=== PATIENT | female | born 1955 | race Hispanic/Latino ===

== ENCOUNTER 2018-01-20 08:15 | Outpatient (CLI) | payer OTHER, BC | END 2018-01-20 08:16 | disposition home or self-care (01) | LOC: BICMAMMO 08:15 | PROVIDERS: ATTEND Orthopaedic Surgery | DX: Z12.31 Encounter for screening mammogram for malignant neoplasm of breast (principal); Z80.3 Family history of malignant neoplasm of breast | CPT/HCPCS: 77063; 77067 ==

== ENCOUNTER 2018-10-22 15:56 | Inpatient (IN) | payer BC, OTHER ==
[2018-10-22 17:35] LABS: #Eosinphils 0.1 thou/uL (0.0-0.7); #Lymphocytes 1.9 thou/uL (1.20-3.40); #Neutrophils 9.4 thou/uL (1.40-6.50); %Basophils 0.2 % (0.0-1.0); %Eosinophils 0.7 % (0.0-10.0); %Lymphocytes 15.3 % (21.0-51.0); %Monocytes 7.7 % (0.0-10.0); %Neutrophils 76.1 % (42.0-75.0); Hemoglobin 13.9 g/dL (12.0-16.0); Mean Corpuscular HGB CONC 33.2 g/dL (32.0-36.0); Mean Corpuscular Hemoglobin 31.4 pg (27.0-31.0); Mean Corpuscular Volume 94.6 fL (78.0-98.0); Mean Platelet Volume 8.5 fL (7.4-10.4); Platelet Count 321 thou/uL (130-400); RBC Distribution Width 11.8 % (11.5-14.5); Red Blood Cell (RBC) Count 4.44 mill/uL (4.20-5.40); White Blood Cell (WBC) Count 12.3 thou/uL (4.8-10.8)
[2018-10-22 17:45] LABS: Anion Gap 24 mmol/L (10-20); BUN (Urea Nitrogen) 58 mg/dL (9.8-20.1); Calc. Creatinine Clearance 0 mL/min (70-130); Calcium 10.7 mg/dL (7.8-10.44); Carbon Dioxide 16 mmol/L (23-31); Chloride 99 mmol/L (98-107); Estimated GFR-MDRD 6; Glucose 107 mg/dL (80-115); Potassium 4.3 mmol/L (3.5-5.1); Sodium 135 mmol/L (136-145)
--- NOTE | 2018-10-22 19:34 | PDOC.FPRHP ---
- History of Present Illness Chief Complaint: nausea/vomiting History of Present Illness: 63yo F with pmh of HTN presents with 3 day hx of nausea/vomiting/diarrhea. Denies any upper or lower GIB, denies sick contacts, no changes in diet, denies fever/chills. Pt last urinated Thursday morning. Of note pt does report to see Dr. Corona for HTN though she denies hx of kidney disease. ED Course: 2L NS - History PMHx: HTN PSHx: cholecystectomy FHx: Son- DM, ESRD on dialysis Social: drinks EtOH socially, denies tobacco/drugs - Review of Systems General: denies: fever/chills, fatigue Eyes: denies: eye pain, vision changes ENT: denies: nasal congestion, rhinorrhea Respiratory: denies: congestion, shortness of breath Cardiovascular: denies: chest pain, palpitation Gastrointestinal: reports: nausea, vomiting, diarrhea, constipation. denies: GI bleeding Genitourinary: reports: other (no urination x2.5 days). denies: incontinence Skin: denies: rashes, lesions Musculoskeletal: denies: pain, tenderness Neurological: denies: syncope, seizure Psychological: denies: anxiety, depression - Vital signs BP: [108/72] HR: [83] RR: [18] Tmax: [98.4] Pox: [97]% on [ra] Wt: [81kg] - Physical Exam Constitutional: NAD, awake, alert and oriented HEENT: normocephalic and atraumatic, EOMI, grossly normal vision, grossly normal hearing, MMM Neck: supple, trachea midline Chest: no-tender to palpation Heart: RRR, normal S1/S2 Lungs: CTAB, no respiratory distress Abdomen: soft, non-tender Musculoskeletal: normal structure, normal tone Neurological: no focal deficit, normal sensation Skin: no rash/lesions, good turgor Heme/Lymphatic: no unusual bruising or bleeding, no purpura Psychiatric: normal mood and affect, good judgment and insight FMR H&P: Results - Labs Result Diagrams: 10/22/18 17:24 10/22/18 17:24 Lab results: WBC 12.3 thou/uL (4.8-10.8) H 10/22/18 17:24 Hgb 13.9 g/dL (12.0-16.0) 10/22/18 17:24 Hct 42.0 % (36.0-47.0) 10/22/18 17:24 MCV 94.6 fL (78.0-98.0) 10/22/18 17:24 Plt Count 321 thou/uL (130-400) 10/22/18 17:24 Neutrophils % 76.1 % (42.0-75.0) H 10/22/18 17:24 Sodium 135 mmol/L (136-145) L 10/22/18 17:24 Potassium 4.3 mmol/L (3.5-5.1) 10/22/18 17:24 Chloride 99 mmol/L (98-107) 10/22/18 17:24 Carbon Dioxide 16 mmol/L (23-31) L 10/22/18 17:24 BUN 58 mg/dL (9.8-20.1) H 10/22/18 17:24 Creatinine 6.84 mg/dL (0.6-1.1) H 10/22/18 17:24 Glucose 107 mg/dL (80-115) 10/22/18 17:24 Calcium 10.7 mg/dL (7.8-10.44) H 10/22/18 17:24 FMR H&P: A/P - Problem List (1) Acute renal failure Current Visit: Yes Status: Acute (2) HTN (hypertension) Current Visit: Yes Status: Acute Code(s): I10 - ESSENTIAL (PRIMARY) HYPERTENSION (3) Nausea & vomiting Current Visit: Yes Status: Acute Code(s): R11.2 - NAUSEA WITH VOMITING, UNSPECIFIED (4) Diarrhea Current Visit: Yes Status: Acute Code(s): R19.7 - DIARRHEA, UNSPECIFIED - Plan Acute on chronic renal failure likely 2/2 hypovolemia A- Pt was volume down 2/2 N/V/Diarrhea for 3 days. BUN Cr 58 and 6.84, bicarb 16 , anion gap 20 at time of our evaluation. Dr. Corona was called and recommended 250ml bolus LR and continue LR at 125ml/hr. P- LR 250ml bolus, then 125/hr per nephro recs - Nephrology consulted, recommendations greatly appreciated - monitor BMP in AM - f/u nephro recs Diarrhea/nausea/vomiting A- pt likely has viral gastroenteritis, onset of symptoms is only a few days. P- fluid resuscitation as listed above - Zofran for nausea controll - will hold of diarrhea workup/stool studies for now UTI A- UA concerning for UTI P- UCx - start rocephin HTN A- BP relatively low though not hypotensive in ER. P- will hold home antihypertensives CODE: full dispo: inpt, tele FMR H&P: Upper Level - Pertinent history 63 yo WF PMH HTN. Presents with 3 day history of diarrhea, nausea, and vomiting. States she has not made urine since Thursday evening. Denies history of kidney disease. ER: Labs, IV NS 2L. 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 Pertinent changes/additions are listed here. 1. Acute renal failure present at admission: Likely pre-renal in etiology. Since patient already established with Dr. Ozzy Corona, consult was placed. He recommends IV LR bolus then rate of 125 mL/hr. Will monitor BMP. Electrolytes normal. Patient making urine in ER. 2. Diarrhea: check C-diff likely viral in etiology 3. UTI: rocephin 1g. culture pending. 4. Chronic conditions per Substation Operator Transforming note. 5. Diet: NPO at midnight in case needs HD access. If kidney function improving, will allow her to eat. 6. PPx: heparin SC 7. CODE: FULL Dispo: inpatient, tele, >[address] Cervantes.
[2018-10-22 21:47] LABS: Bilirubin Moderate (Negative); Blood, Urine Moderate (Negative); Clarity CLOUDY (Clear); Glucose, Urine (Dipstick) Negative (Negative); Leukocyte Moderate (Negative); Nitrite Negative (Negative); Protein, Urine (Dipstick) 300 mg/dL (Neg-Trace); Urobilinogen 0.2 mg/dL (0.2-1.0)
[2018-10-22 21:48] LABS: Pathc Cast-AUWi Flag 2.04 (0-2.49); Squamous Epithelial 0-3 HPF (0-3)
[2018-10-22 21:49] LABS: Yeast-AUWi Flag 65.8 (0-25.0)
[2018-10-22 21:57] LABS: Bacteria/HPF 3+ HPF (None Seen)
[2018-10-22 21:58] LABS: ALT (SGPT) 84 U/L (8-55); AST (SGOT) 97 U/L (5-34); Albumin 3.7 g/dL (3.4-4.8); Alkaline Phosphatase 58 U/L (40-150); Bilirubin, Direct 0.2 mg/dL (0.1-0.3); Bilirubin, Total 0.5 mg/dL (0.2-1.2); Protein, Total 7.4 g/dL (6.0-8.3)
[2018-10-22 21:59] LABS: Yeast-All Forms Rare HPF (None Seen)
[2018-10-22 23:51] VITALS: BMI 32.1
[2018-10-23] MEDS ORDERED: Lactated Ringer's 250 ML IV SCH (00:18)
[2018-10-23] MEDS ORDERED: Ondansetron PF 4 MG/2 ML Vial IVP PRN (00:18)
[2018-10-23] MEDS ORDERED: Ondansetron ODT 4 MG TAB PO PRN (00:18)
[2018-10-23] MEDS ORDERED: Acetaminophen 325 MG TAB PO PRN (00:18)
[2018-10-23] MEDS: cefTRIAXone\\ROCEPHIN 1 GM in Sodium Chloride 0.9% 100 ML IVPB SCH (00:40)
[2018-10-23] MEDS: Lactated Ringer's 1,000 ML IV SCH ×3 (00:40→19:50)
[2018-10-23 08:50] LABS: #Eosinphils 0.1 thou/uL (0.0-0.7); #Lymphocytes 1.6 thou/uL (1.20-3.40); #Monocytes 0.9 thou/uL (0.11-0.59); #Neutrophils 7.8 thou/uL (1.40-6.50); %Eosinophils 1.3 % (0.0-10.0); %Lymphocytes 15.2 % (21.0-51.0); %Neutrophils 74.5 % (42.0-75.0); Hemoglobin 11.4 g/dL (12.0-16.0); Mean Corpuscular HGB CONC 33.7 g/dL (32.0-36.0); Mean Corpuscular Hemoglobin 31.3 pg (27.0-31.0); Mean Corpuscular Volume 92.9 fL (78.0-98.0); Mean Platelet Volume 8.8 fL (7.4-10.4); Platelet Count 236 thou/uL (130-400); RBC Distribution Width 11.8 % (11.5-14.5); Red Blood Cell (RBC) Count 3.64 mill/uL (4.20-5.40); White Blood Cell (WBC) Count 10.5 thou/uL (4.8-10.8)
[2018-10-23] MEDS ORDERED: Prevnar 13-Val Conj/PF 0.5 ML SYRINGE IM ONE (09:00)
[2018-10-23 09:17] LABS: Anion Gap 17 mmol/L (10-20); BUN (Urea Nitrogen) 58 mg/dL (9.8-20.1); Calc. Creatinine Clearance 13 mL/min (70-130); Carbon Dioxide 15 mmol/L (23-31); Chloride 106 mmol/L (98-107); Estimated GFR-MDRD 7; Glucose 84 mg/dL (80-115); Potassium 3.9 mmol/L (3.5-5.1); Sodium 134 mmol/L (136-145)
[2018-10-23] MEDS: Heparin 5,000 UNITS/ML VIAL SC SCH ×3 (09:24→21:17)
--- NOTE | 2018-10-23 11:02 | PDOC.FM ---
- Subjective Subjective: No overnight events. Continues to have diarrhea but nausea has resolved. She feels better than yesterday, reports less weakness. Good appetite. - Objective MAR Reviewed: Yes Vital Signs & Weight: Vital Signs (12 hours) Temp Pulse Resp BP Pulse Ox 10/23/18 08:00 96.4 F L 72 16 116/68 97 10/23/18 03:19 98.3 F 81 16 103/52 L 92 L 10/22/18 23:33 99 F 94 16 110/59 L 95 Weight Weight 82.327 kg Result Diagrams: 10/23/18 07:46 10/23/18 07:46 Phys Exam - Physical Examination Constitutional: NAD HEENT: moist MMs Neck: supple Respiratory: no wheezing, clear to auscultation bilateral Cardiovascular: RRR, no significant murmur Gastrointestinal: soft, non-tender, positive bowel sounds Musculoskeletal: no edema, pulses present Neurological: moves all 4 limbs Psychiatric: normal affect, A&O x 3 Skin: cap refill <2 seconds Dx/Plan (1) Acute renal failure Status: Acute (2) Dehydration Code(s): E86.0 - DEHYDRATION Status: Acute (3) Diarrhea Code(s): R19.7 - DIARRHEA, UNSPECIFIED Status: Acute (4) HTN (hypertension) Code(s): I10 - ESSENTIAL (PRIMARY) HYPERTENSION Status: Acute (5) Nausea & vomiting Code(s): R11.2 - NAUSEA WITH VOMITING, UNSPECIFIED Status: Acute (6) CKD (chronic kidney disease) Code(s): N18.9 - CHRONIC KIDNEY DISEASE, UNSPECIFIED Status: Chronic - Plan Plan: Acute on chronic renal failure likely 2/2 hypovolemia - Unknown baseline - N/v/diarrhea x3 days. - BUN/Cr 58/6.84 - Nephrology consulted, Dr. Corona. Apprec recs - Continue LR @125ml/hr. - Continue to monitor with daily BMPs Diarrhea - C diff negative - likely viral gastroenteritis - Zofran for nausea UTI - UA with evidence of infection - Urine Cx pending - Continue rocephin HTN - Holding home meds due to low BP Nausea/vomiting, resolved - Likely 2/2 viral infection Transaminitis - Continue to monitor Code Status: FULL DVT ppx: Heparin PCP: Evgeny
--- NOTE | 2018-10-23 11:07 | CON ---
DATE OF CONSULTATION: SERVICE: Renal Medicine. HISTORY OF PRESENT ILLNESS: Ms. Patterson is a 63-year-old female with known history of longstanding hypertension, chronic renal failure from a presumed hypertensive nephropathy and admitted for volume depletion. She was found it to be an acute kidney injury that was most likely hemodynamically-mediated renal dysfunction. Of interest, this patient has also been taking an MARIA GUADALUPE inhibitor. She has been having nausea and vomiting as well as diarrhea. We are consulted for acute kidney injury on top of her chronic renal failure. Her initial creatinine was noted to be more than 6 mg%. Empiric volume repletion has been started with this patient. REVIEW OF SYSTEMS: Positive for nausea and vomiting. Positive for diarrhea. No chest pain. No shortness of breath. No headache. No diplopia. No syncopal episode. No productive cough. No fever or chills. No gross hematuria. No dysuria. No urinary frequency. No abdominal pain. Decreased appetite. Decreased energy level. No diplopia. No headache. No sore throat. No fever or chills. MEDICATIONS: Home medications included the following; 1. Metoprolol succinate 50 mg daily. 2. Fosinopril 20 mg daily. 3. Aspirin 81 mg daily. 4. Amlodipine 10 mg tablet once a day. Current medications: 1. Ceftriaxone 1 g IV daily. 2. Heparin 5000 units subcu t.i.d. 3. D5 lactated Ringer's 125 mL. 4. P.r.n. Zofran. PAST MEDICAL HISTORY: Chronic renal failure from hypertensive nephropathy, longstanding hypertension. PAST SURGICAL HISTORY: 1. Status post colonoscopy? 2. Status post breast biopsy - benign findings. 3. History of status post cholecystectomy. SOCIAL HISTORY: The patient is , 2 children. 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 Education, high school. No smoking. Alcohol is occasional. Denies any IV drug abuse. Denies any blood transfusion. Active lifestyle. ALLERGIES: NONE. TRAUMA: None. IMMUNIZATIONS: Up-to-date. HOSPITALIZATIONS: Please see past medical history. FAMILY HISTORY: Positive family history of ESRD - one son to start dialysis. PHYSICAL EXAMINATION: VITAL SIGNS: Blood pressure 116/68, heart rate 72, respiratory rate 16, temperature 96.4, and pulse ox 97%. GENERAL: Awake, alert, supine, comfortable, not in distress. SKIN: Adequate turgor. HEENT: Pinkish conjunctivae. Anicteric sclerae. NECK: No neck mass. No carotid bruits. No JVD. CHEST: No deformities. LUNGS: Clear breath sounds. HEART: Normal sinus rhythm. No murmur. No gallops. No rubs. ABDOMEN: Globular, soft, and nontender. No masses. EXTREMITIES: No edema. No deformities. NEUROLOGICAL: No tremors. No asterixis. Oriented to 3 spheres. Moving all extremities. LABORATORY DATA: Laboratories of October 22, 2018; sodium 135, potassium 4.3, chloride 99, carbon dioxide 16, BUN 58, creatinine 6.84, calcium 10.7, AST 97, ALT 84. TSH 2.04. Troponin I 0.015. On October 23, 2018; sodium 134, potassium 3.9, chloride 106, carbon dioxide 15, BUN 58, creatinine 5.68, glucose 84, and calcium 9. White count 10.5, hemoglobin 11.4. Urinalysis, specific gravity is 20. There is a protein of 300, rbc's 7 to 10, wbc's greater than 50. No pigmented granular casts. ASSESSMENT AND PLAN: 1. Acute kidney injury - with a history of nausea, vomiting, decreased p.o. intake and ?diarrhea. She most likely has a hemodynamically-mediated renal dysfunction. At the same time, the intake of the fosinopril probably aggravated the renal dysfunction. Agree with current management. Continue empiric volume repletion. Continue to hold off fosinopril. 2. No indication for any dialytic intervention. With no significant improvement in the renal function in the next 24 to 48 hours, we will do a renal ultrasound. Overall agree with current management. Recheck basic metabolic and CBC in a.m. Job ID: [id number]
[2018-10-24] MEDS: cefTRIAXone\\ROCEPHIN 1 GM in Sodium Chloride 0.9% 100 ML IVPB SCH (00:28)
[2018-10-24] MEDS: Lactated Ringer's 1,000 ML IV SCH ×2 (00:29→10:43)
--- NOTE | 2018-10-24 05:47 | PDOC.FM ---
- Subjective Subjective: Feeling good this morning. No overnight events. Nausea, diarrhea, and vomiting have resolved. She would like to try a regular diet today as she was able to tolerate soup and jello yesterday. - Objective MAR Reviewed: Yes Vital Signs & Weight: Vital Signs (12 hours) Temp Pulse Resp BP Pulse Ox 10/24/18 03:10 97.7 F 73 14 135/73 97 10/23/18 18:45 98.1 F 80 16 171/85 H 97 Weight Weight 82.327 kg I&O: 10/22/18 10/23/18 10/24/18 06:59 06:59 07:59 Intake Total 2401 Output Total 1800 Balance 601 Result Diagrams: 10/24/18 06:38 10/24/18 06:38 Phys Exam - Physical Examination Constitutional: NAD HEENT: moist MMs Neck: supple Respiratory: no wheezing, clear to auscultation bilateral Cardiovascular: RRR, no significant murmur Gastrointestinal: soft, non-tender, positive bowel sounds Musculoskeletal: no edema Neurological: moves all 4 limbs Psychiatric: normal affect, A&O x 3 Skin: cap refill <2 seconds Dx/Plan (1) Acute renal failure Status: Acute (2) Dehydration Code(s): E86.0 - DEHYDRATION Status: Acute (3) Diarrhea Code(s): R19.7 - DIARRHEA, UNSPECIFIED Status: Acute (4) HTN (hypertension) Code(s): I10 - ESSENTIAL (PRIMARY) HYPERTENSION Status: Acute (5) Nausea & vomiting Code(s): R11.2 - NAUSEA WITH VOMITING, UNSPECIFIED Status: Acute (6) CKD (chronic kidney disease) Code(s): N18.9 - CHRONIC KIDNEY DISEASE, UNSPECIFIED Status: Chronic - Plan Plan: Acute on chronic renal failure likely 2/2 hypovolemia - Likely component of fosinopril as well, will hold - N/v/diarrhea x3 days. - BUN Cr improving - Nephrology consulted, Dr. Corona. Apprec recs - D/c LR @125ml/hr. Diarrhea - C diff negative - likely viral gastroenteritis - Zofran for nausea UTI - UA with evidence of infection - Urine Cx pending - Continue rocephin HTN - Holding home meds due to low BP and fosinopril contributing to RICARDA Nausea/vomiting, resolved - Likely 2/2 viral infection Transaminitis - Continue to monitor Code Status: FULL DVT ppx: Heparin PCP: Evgeny Dispo: Discharge today with F/u [address] Corona
[2018-10-24 07:07] LABS: #Basophils 0.1 thou/uL (0.0-0.2); #Eosinphils 0.4 thou/uL (0.0-0.7); #Lymphocytes 2.2 thou/uL (1.20-3.40); #Monocytes 0.7 thou/uL (0.11-0.59); %Basophils 0.8 % (0.0-1.0); %Eosinophils 5.7 % (0.0-10.0); %Lymphocytes 34.7 % (21.0-51.0); %Monocytes 11.2 % (0.0-10.0); %Neutrophils 47.5 % (42.0-75.0); Hemoglobin 11.6 g/dL (12.0-16.0); Mean Corpuscular HGB CONC 32.7 g/dL (32.0-36.0); Mean Corpuscular Hemoglobin 30.9 pg (27.0-31.0); Mean Corpuscular Volume 94.3 fL (78.0-98.0); Mean Platelet Volume 8.4 fL (7.4-10.4); Platelet Count 235 thou/uL (130-400); RBC Distribution Width 11.6 % (11.5-14.5); Red Blood Cell (RBC) Count 3.77 mill/uL (4.20-5.40); White Blood Cell (WBC) Count 6.3 thou/uL (4.8-10.8)
[2018-10-24 07:32] LABS: ALT (SGPT) 84 U/L (8-55); AST (SGOT) 84 U/L (5-34); Albumin 3.2 g/dL (3.4-4.8); Alkaline Phosphatase 50 U/L (40-150); Anion Gap 15 mmol/L (10-20); BUN (Urea Nitrogen) 47 mg/dL (9.8-20.1); Bilirubin, Total 0.3 mg/dL (0.2-1.2); Calc. Creatinine Clearance 20 mL/min (70-130); Calcium 9.3 mg/dL (7.8-10.44); Carbon Dioxide 18 mmol/L (23-31); Chloride 109 mmol/L (98-107); Estimated GFR-MDRD 12; Globulin 3.4 g/dL (2.4-3.5); Glucose 76 mg/dL (80-115); Potassium 3.8 mmol/L (3.5-5.1); Protein, Total 6.6 g/dL (6.0-8.3); Sodium 138 mmol/L (136-145)
[2018-10-24] MEDS: Heparin 5,000 UNITS/ML VIAL SC SCH (09:12)
--- NOTE | 2018-10-24 10:50 | PRG ---
DATE OF SERVICE: 10/24/2018 SERVICE: Renal Medicine SUBJECTIVE: Ms. Patterson is a 63-year-old female, who was admitted for an acute kidney injury secondary to hemodynamically-mediated renal dysfunction. Empiric volume repletion is being given. She was also found to have a UTI and is on ceftriaxone. She is currently tolerating current IV fluids. No complaints of chest pain or shortness of breath. She is feeling much better. OBJECTIVE: VITAL SIGNS: Blood pressure 135/73, heart rate 73, respiratory rate 14, temperature 97.7, and pulse ox 97%. GENERAL: Awake, alert, comfortable, not in overt distress. SKIN: Adequate turgor. HEENT: Pinkish conjunctivae. Anicteric sclerae. NECK: No neck mass. No carotid bruits. No JVD. CHEST: No deformities. LUNGS: Clear breath sounds. No wheezing. No crackles. HEART: Normal sinus rhythm. No murmurs. No gallops. No rubs. ABDOMEN: Globular, soft, nontender. No masses. EXTREMITIES: No edema. No deformities. MEDICATIONS: Medications of October 24, 2018, reviewed. LABORATORY DATA: Laboratories of October 23, 2018; white count 6.3, hemoglobin 11.6, hematocrit 35.6. Sodium 138, potassium 3.8, chloride 109, carbon dioxide 18, BUN 47, creatinine 3.71, GFR 12 mL/minute, glucose 76, and calcium 9.3. AST 84, ALT 84. Albumin 3.2. ASSESSMENT AND PLAN: 1. Acute kidney injury - hemodynamically-mediated renal dysfunction. Continue current management. Continue IV fluid volume repletion. I will continue to hold off any MARIA GUADALUPE inhibitors or ARB for the moment with this patient. 2. Proteinuria. During a routine urinalysis, she was found to have protein of 300. The plan is simply to observe her. We may need to do further workup as an outpatient with this. 3. Hypertension, stable. If BP medicines are to be resumed, I would probably resume the amlodipine and/or the metoprolol. Continue to hold off the fosinopril. Overall, agree with current management. Job ID: [id number]
[2018-10-24 12:09] VITALS: BP 146/76; TEMP 98.6
--- NOTE | 2018-10-25 09:08 | HP ---
ADDENDUM: An addendum to the history and physical and also the progress note on Opal Patterson. Please see the history and physical done by Dr. Ng and the progress note done by Dr. Murphy, which I agree. The patient was seen, evaluated, and discussed with the residents by bedside. HISTORY OF PRESENT ILLNESS: A 63-year-old with history of hypertension, although does not sound like chronically elevated creatinine, who comes in with what sounds like 3 days of gastroenteritis with nausea, vomiting, and diarrhea, but then, anuric for almost 24 hours and creatinine was as high as 6.3, and so she is being admitted for acute renal failure. PAST MEDICAL HISTORY: Per resident's history and physical. PAST SURGICAL HISTORY: Per resident's history and physical. FAMILY HISTORY: Per resident's history and physical. SOCIAL HISTORY: Per resident's history and physical. REVIEW OF SYSTEMS: Per resident's history and physical. PHYSICAL EXAMINATION: VITAL SIGNS: Afebrile. Vital signs are stable. Currently not vomiting. No apparent distress. No respiratory distress. HEENT: Moist mucosa. Conjunctivae are not particularly pale. CHEST: Clear. HEART: Regular rate and rhythm. ABDOMEN: Positive bowel sounds. Soft, nontender, and nondistended. No hepatosplenomegaly. No masses, rebound, or guarding. LABORATORY DATA: Blood work significant for white count being a little bit high at 12.3. Liver function tests were a little bit elevated. AST of 97, ALT of 84, initial creatinine was 6.84 and overnight, did come down in the 5 range. Calcium initially was 10.7. ASSESSMENT AND PLAN: 1. Viral gastroenteritis. Plan is to IV fluids and Zofran. Clostridium difficile was negative. 2. Acute renal failure, possibly on top of chronic renal insufficiency. We will treat with obviously IV fluids and just watch there is Renal has involved coming alongside. Hopefully, her creatinine will come back down to normal and this will not be a long-term issue. Job ID: [id number]
--- NOTE | 2018-10-25 11:08 | DIS ---
DATE OF ADMISSION: 10/22/2018 DATE OF DISCHARGE: 10/24/2018 RESIDENT: Milady Murphy MD ADMITTING ATTENDING: Seng Cervantes MD DISCHARGE ATTENDING: Seng Cervantes MD CONSULT: Nephrology. PROCEDURES: None. PRIMARY DIAGNOSES: 1. Acute on chronic renal failure, likely secondary to hypovolemia. 2. Viral gastroenteritis. 3. Urinary tract infection. SECONDARY DIAGNOSES: 1. Hypertension. 2. Nausea and vomiting, resolved. 3. Transaminitis. DISCHARGE MEDICATIONS: 1. Amlodipine 10 mg daily. 2. Aspirin 81 mg daily. 3. Cefdinir 300 mg q.12 hours for x5 days (new). 4. Metoprolol succinate 50 mg daily. 5. Zofran 4 mg q.6 hours p.r.n. HISTORY OF PRESENT ILLNESS/HOSPITAL COURSE: Ms. Patterson is a 63-year-old female, who presented to the ED with 3-day history of nausea, vomiting, and diarrhea. She has a history of chronic kidney disease and she sees Dr. Corona for outpatient and the ED labs were notable for leukocytosis 12.3, creatinine 6.84, and GFR 6. UA concerning for infection. AST 97 and ALT 84. Urine culture positive for E. coli, pansensitive. C. diff negative. She received 2 L normal saline. Nephrology was consulted, who recommended further resuscitation and maintenance fluids until the patient able to tolerate a regular diet. The patient's kidney function showed it responds to fluid. Creatinine was 3.71 at discharge. The patient tolerating a regular diet and it was recommended, the patient have close followup with Dr. Corona as outpatient to monitor renal function, after the cause of her diarrhea, nausea, and vomiting is likely viral gastroenteritis. Zofran was given for nausea and C. diff was negative. Rocephin was started for her UTI and she was discharged on Cefdinir. In regard to her hypertension, her blood pressure was actually borderline low and blood pressure medications were held. Dr. Corona recommended holding off lisinopril because this could be contributing to her RICARDA, this can be followed up as outpatient and held until plan to restart. Unknown etiology for transaminitis. This was monitored and discharge labs showed AST/ALT 84/84. Follow up outpatient PCP. DISPOSITION: Stable. DISCHARGE INSTRUCTIONS: 1. Location. Home. 2. Activity. No restrictions. 3. Diet. Renal and low-protein. 4. Follow up with Dr. Vázquez within [address] Corona within 1 week. Job ID: [id number]
--- NOTE | 2018-10-25 11:21 | PRG ---
DATE OF SERVICE: ADDENDUM: Please see the note from Dr. Murphy, for which I agree. The patient was seen, evaluated, and discussed with the residents by bedside. Doing tremendously better. Her creatinine, which was elevated almost at 7, has come down to 3.7 with fluids. She has no more nausea, no more vomiting, and no more diarrhea. We are stopping her MARIA GUADALUPE inhibitor and likely can be discharged home, which is a close outpatient followup on creatinine. Job ID: [id number]
== END 2018-10-24 12:19 | disposition home or self-care (01) | DRG 683 ==
LOC: ERS 15:56 → 2NO 23:38
PROVIDERS: ADMIT Family Medicine; ATTEND Family Medicine
DX: N17.9 Acute kidney failure, unspecified (principal); N39.0 Urinary tract infection, site not specified; I12.9 Hypertensive chronic kidney disease with stage 1 through stage 4 chronic kidney disease, or unspecified chronic kidney disease; N18.9 Chronic kidney disease, unspecified; A08.4 Viral intestinal infection, unspecified; E86.0 Dehydration; R74.0 Nonspecific elevation of levels of transaminase and lactic acid dehydrogenase [LDH]; B96.20 Unspecified Escherichia coli [E. coli] as the cause of diseases classified elsewhere; Z90.49 Acquired absence of other specified parts of digestive tract
CPT/HCPCS: 36415; 80048; 80053; 80076; 81003; 81015; 83605; 83735; 84443; 84484; 85025; 87077; 87086; 87186; 87324; 87449; 90471; 90670; 93005; 96360; 96361; G0009; J0696; J1644; J7050

== ENCOUNTER 2019-10-18 07:42 | Outpatient (CLI) | payer MEDICARE, BC ==
--- NOTE | 2019-10-18 09:16 | ULT ---
BILATERAL RENAL ULTRASOUND: Date: 10/18/2019 INDICATION: History of chronic renal insufficiency. FINDINGS: There is a 2.0 cm cyst involving the superior pole of the left kidney. No additional focal renal lesi on or hydronephrosis is evident. The right kidney measures 9.2 x 5.7 x 5.3 cm. The left kidney measures 9.2 x 5.7 x 6.1 cm. Bladder volume is 56 mL. IMPRESSION: 1. No solid renal lesion or hydronephrosis. 2. Left renal cyst. POS: OFF
== END 2019-10-18 07:43 | disposition home or self-care (01) ==
LOC: BICULT 07:42
PROVIDERS: ATTEND Internal Medicine Nephrology
DX: N18.4 Chronic kidney disease, stage 4 (severe) (principal); N28.1 Cyst of kidney, acquired
CPT/HCPCS: 76770

== ENCOUNTER 2020-06-15 08:11 | Day surgery (SDC) | payer BC, MEDICARE ==
[2020-06-14 16:22] VITALS: BMI 30.9
[2020-06-15 08:36] LABS: PTT 32.3 sec (22.9-36.1); Prothrombin Time 13.5 sec (12.0-14.7)
[2020-06-15 10:30] VITALS: BP 179/87; TEMP 99
== END 2020-06-15 10:20 | disposition home or self-care (01) ==
LOC: CT 08:11
PROVIDERS: ATTEND Internal Medicine Nephrology
DX: I12.9 Hypertensive chronic kidney disease with stage 1 through stage 4 chronic kidney disease, or unspecified chronic kidney disease (principal); N18.4 Chronic kidney disease, stage 4 (severe); Z53.09 Procedure and treatment not carried out because of other contraindication; Z79.82 Long term (current) use of aspirin; Z79.899 Other long term (current) drug therapy
CPT/HCPCS: 36415; 85610; 85730

== ENCOUNTER 2021-02-19 09:11 | Inpatient (IN) | payer BC, MEDICARE ==
[2021-02-19 10:34] VITALS: BMI 34.7
[2021-02-19] MEDS ORDERED: Amlodipine 10 MG TAB PO SCH (11:30)
[2021-02-19] MEDS ORDERED: Calcitriol 0.25 MCG CAP PO SCH (11:30)
[2021-02-19] MEDS ORDERED: Aspirin 325 MG TAB PO SCH (11:30)
[2021-02-19] MEDS: Sodium Chloride 0.9% 1,000 ML IV SCH ×2 (11:55→20:48)
[2021-02-19 17:19] LABS: #Basophils 0.1 thou/uL (0.0-0.2); #Eosinphils 0.7 thou/uL (0.0-0.7); #Monocytes 0.8 thou/uL (0.11-0.59); #Neutrophils 7.2 thou/uL (1.40-6.50); %Basophils 0.6 % (0.0-1.0); %Eosinophils 6.3 % (0.0-10.0); %Lymphocytes 25.2 % (21.0-51.0); %Monocytes 7.1 % (0.0-10.0); %Neutrophils 60.8 % (42.0-75.0); Hemoglobin 9.9 g/dL (12.0-16.0); Mean Corpuscular HGB CONC 33.2 g/dL (32.0-36.0); Mean Corpuscular Hemoglobin 31.2 pg (27.0-31.0); Mean Corpuscular Volume 93.8 fL (78.0-98.0); Mean Platelet Volume 7.5 fL (7.4-10.4); Platelet Count 312 thou/uL (130-400); RBC Distribution Width 11.6 % (11.5-14.5); Red Blood Cell (RBC) Count 3.18 mill/uL (4.20-5.40); White Blood Cell (WBC) Count 11.9 thou/uL (4.8-10.8)
[2021-02-19 17:34] LABS: ALT (SGPT) 10 U/L (8-55); AST (SGOT) 16 U/L (5-34); Albumin 3.8 g/dL (3.4-4.8); Alkaline Phosphatase 48 U/L (40-110); Anion Gap 16 mmol/L (10-20); BUN (Urea Nitrogen) 56 mg/dL (9.8-20.1); Bilirubin, Total 0.4 mg/dL (0.2-1.2); Calc. Creatinine Clearance 17 mL/min (70-130); Calcium 9.3 mg/dL (7.8-10.44); Carbon Dioxide 19 mmol/L (23-31); Chloride 104 mmol/L (98-107); Globulin 3.7 g/dL (2.4-3.5); Glucose 86 mg/dL (80-115); Potassium 4.1 mmol/L (3.5-5.1); Protein, Total 7.5 g/dL (5.8-8.1); Sodium 135 mmol/L (136-145)
[2021-02-20 05:04] LABS: #Basophils 0.1 thou/uL (0.0-0.2); #Eosinphils 0.9 thou/uL (0.0-0.7); #Lymphocytes 3.2 thou/uL (1.20-3.40); #Monocytes 0.7 thou/uL (0.11-0.59); #Neutrophils 7.1 thou/uL (1.40-6.50); %Basophils 0.7 % (0.0-1.0); %Eosinophils 7.4 % (0.0-10.0); %Lymphocytes 26.6 % (21.0-51.0); %Neutrophils 59.3 % (42.0-75.0); Mean Corpuscular HGB CONC 34.9 g/dL (32.0-36.0); Mean Corpuscular Volume 91.8 fL (78.0-98.0); Mean Platelet Volume 7.6 fL (7.4-10.4); Platelet Count 290 thou/uL (130-400); RBC Distribution Width 11.6 % (11.5-14.5); Red Blood Cell (RBC) Count 3.11 mill/uL (4.20-5.40)
[2021-02-20] MEDS ORDERED: Calcitriol 0.25 MCG CAP PO SCH (06:00)
[2021-02-20] MEDS ORDERED: Amlodipine 10 MG TAB PO SCH (06:00)
[2021-02-20] MEDS ORDERED: Aspirin 325 MG TAB PO SCH (06:00)
[2021-02-20] MEDS ORDERED: Heparin 10,000 UNITS/ 10 ML VIAL ONE (06:39)
[2021-02-20] MEDS ORDERED: Lidocaine 1% (PF) 30 ML VIAL ONE (06:39)
[2021-02-20 07:03] LABS: Anion Gap 15 mmol/L (10-20); BUN (Urea Nitrogen) 59 mg/dL (9.8-20.1); Calc. Creatinine Clearance 20 mL/min (70-130); Calcium 8.7 mg/dL (7.8-10.44); Carbon Dioxide 16 mmol/L (23-31); Chloride 110 mmol/L (98-107); Glucose 99 mg/dL (80-115); Potassium 4.3 mmol/L (3.5-5.1); Sodium 137 mmol/L (136-145)
[2021-02-20] MEDS ORDERED: Fentanyl 100 MCG/2 ML VIAL ONE (07:13)
[2021-02-20] MEDS ORDERED: Midazolam HCl 2 mg/2 ml Vial ONE (07:13)
[2021-02-20] MEDS ORDERED: Protamine Sulfate 50 MG/5 ML VIAL ONE (07:42)
[2021-02-20] MEDS ORDERED: Nitroglycerin 0.4 MG TAB (25 Tab Bottle) SL PRN ×2 (07:54→08:08)
[2021-02-20] MEDS ORDERED: Acetaminophen/Codeine 30-300mg Tablet PO PRN ×2 (08:08)
[2021-02-20] MEDS ORDERED: Sodium Chloride 0.9% 200 ML IV PRN (08:08)
[2021-02-20] MEDS ORDERED: Sodium Chloride 0.9% 1,000 ML IV SCH (08:15)
[2021-02-20] MEDS: Amlodipine 10 MG TAB PO SCH (09:00)
[2021-02-20] MEDS: Calcitriol 0.25 MCG CAP PO SCH (09:01)
[2021-02-20] MEDS: Aspirin 325 mg Enteric Coated Tablet PO SCH (09:01)
[2021-02-20] MEDS: Sodium Chloride 0.9% 1,000 ML IV SCH ×2 (09:02→15:30)
[2021-02-20] MEDS ORDERED: Iopamidol 370 76% 100 ML VIAL ONE (09:16)
[2021-02-20] MEDS: Nitroglycerin 2% Ointment 1 INCH/1 GM Packet TOP SCH ×2 (09:18→20:39)
[2021-02-20] MEDS ORDERED: Atorvastatin Calcium 40 MG TAB PO SCH (21:00)
[2021-02-21] MEDS: Sodium Chloride 0.9% 1,000 ML IV SCH ×2 (01:22→11:18)
[2021-02-21 05:44] LABS: #Eosinphils 1.1 thou/uL (0.0-0.7); #Lymphocytes 2.1 thou/uL (1.20-3.40); #Monocytes 0.6 thou/uL (0.11-0.59); #Neutrophils 8.1 thou/uL (1.40-6.50); %Basophils 0.4 % (0.0-1.0); %Eosinophils 9.5 % (0.0-10.0); %Lymphocytes 17.1 % (21.0-51.0); %Monocytes 5.3 % (0.0-10.0); %Neutrophils 67.9 % (42.0-75.0); Hemoglobin 9.1 g/dL (12.0-16.0); Mean Corpuscular HGB CONC 34.2 g/dL (32.0-36.0); Mean Corpuscular Volume 93.7 fL (78.0-98.0); Mean Platelet Volume 8.6 fL (7.4-10.4); Platelet Count 259 thou/uL (130-400); RBC Distribution Width 11.7 % (11.5-14.5); Red Blood Cell (RBC) Count 2.85 mill/uL (4.20-5.40)
[2021-02-21 05:50] LABS: Anion Gap 17 mmol/L (10-20); BUN (Urea Nitrogen) 44 mg/dL (9.8-20.1); Calc. Creatinine Clearance 22 mL/min (70-130); Calcium 8.5 mg/dL (7.8-10.44); Carbon Dioxide 12 mmol/L (23-31); Chloride 111 mmol/L (98-107); Glucose 93 mg/dL (80-115); Potassium 4.7 mmol/L (3.5-5.1); Sodium 135 mmol/L (136-145)
[2021-02-21] MEDS: Calcitriol 0.25 MCG CAP PO SCH (08:52)
[2021-02-21] MEDS: Aspirin 325 mg Enteric Coated Tablet PO SCH (08:52)
[2021-02-21] MEDS: Nitroglycerin 2% Ointment 1 INCH/1 GM Packet TOP SCH (08:53)
[2021-02-21] MEDS: Amlodipine 10 MG TAB PO SCH (08:53)
[2021-02-21] MEDS ORDERED: EPOETIN ALFA-EPBX (ESRD) 4,000 UNIT/ML VIAL SC SCH (09:45)
[2021-02-21] MEDS ORDERED: Sodium Bicarbonate Tab 325 MG TAB PO SCH (15:00)
[2021-02-21 15:11] VITALS: BP 138/65; TEMP 98
[2021-02-21] MEDS ORDERED: Ferrous Sulfate 325 MG TAB PO SCH (17:00)
== END 2021-02-21 18:11 | disposition home or self-care (01) | DRG 287 ==
LOC: 2SE 09:11
PROVIDERS: ADMIT Internal Medicine Cardiovascular Disease; ATTEND Internal Medicine Cardiovascular Disease
PROC: 4A023N7 Measurement of Cardiac Sampling and Pressure, Left Heart, Percutaneous Approach (ICD-10-PCS; principal; 2021-02-20)
PROC: B2111ZZ Fluoroscopy of Multiple Coronary Arteries using Low Osmolar Contrast (ICD-10-PCS; 2021-02-20)
PROC: B2151ZZ Fluoroscopy of Left Heart using Low Osmolar Contrast (ICD-10-PCS; 2021-02-20)
DX: I25.10 Atherosclerotic heart disease of native coronary artery without angina pectoris (principal); I12.0 Hypertensive chronic kidney disease with stage 5 chronic kidney disease or end stage renal disease; N18.5 Chronic kidney disease, stage 5; Z51.5 Encounter for palliative care; E87.2 Acidosis; E78.00 Pure hypercholesterolemia, unspecified; I25.5 Ischemic cardiomyopathy; E83.52 Hypercalcemia; D63.1 Anemia in chronic kidney disease; Z79.82 Long term (current) use of aspirin; Z79.899 Other long term (current) drug therapy; Z82.49 Family history of ischemic heart disease and other diseases of the circulatory system
CPT/HCPCS: 36415; 36416; 71045; 80048; 80053; 85025; 85347; 93005; 93010; 93458; 99152; 99153; J1644; J2001; J2250; J2720; J3010; Q5105; Q9967

== ENCOUNTER 2021-06-11 08:29 | Inpatient (IN) | payer BC, MEDICARE ==
[2021-06-11 09:12] LABS: Actual Bicarbonate (HCO3v) 20 mEq/L (22-28); Analyzer IN Cardio ER; Base Excess -3.5 mEq/L (-2.0 to +3.0); Calcium, Ionized (venous) 1.06 mmol/L (1.16-1.32); Chloride (VBG) 101 mmol/L (98-106); Hemoglobin (Hb) 8.7 g/dL (11.7-16.1); Potassium (VBG) 4.16 mmol/L (3.70-5.30); Sodium 136.8 mmol/L (133-146); pH (venous) 7.43 (7.32-7.43)
[2021-06-11] MEDS ORDERED: Furosemide 40 MG/4 ML VIAL ONE (09:25)
[2021-06-11 09:32] LABS: #Basophils 0.1 thou/uL (0.0-0.2); #Eosinphils 0.3 thou/uL (0.0-0.7); #Lymphocytes 1.5 thou/uL (1.20-3.40); #Monocytes 0.8 thou/uL (0.11-0.59); #Neutrophils 7.4 thou/uL (1.40-6.50); %Basophils 0.8 % (0.0-1.0); %Eosinophils 2.7 % (0.0-10.0); %Lymphocytes 14.8 % (21.0-51.0); %Monocytes 7.8 % (0.0-10.0); %Neutrophils 73.9 % (42.0-75.0); Hemoglobin 8.1 g/dL (12.0-16.0); Mean Corpuscular HGB CONC 32.1 g/dL (32.0-36.0); Mean Corpuscular Hemoglobin 31.4 pg (27.0-31.0); Mean Corpuscular Volume 97.9 fL (78.0-98.0); Mean Platelet Volume 7.3 fL (7.4-10.4); Platelet Count 523 thou/uL (130-400); RBC Distribution Width 13.8 % (11.5-14.5); Red Blood Cell (RBC) Count 2.58 mill/uL (4.20-5.40)
[2021-06-11 10:01] LABS: ALT (SGPT) 37 U/L (8-55); AST (SGOT) 30 U/L (5-34); Albumin 3.4 g/dL (3.4-4.8); Alkaline Phosphatase 60 U/L (40-110); Anion Gap 20 mmol/L (10-20); BUN (Urea Nitrogen) 76 mg/dL (9.8-20.1); Bilirubin, Total 0.7 mg/dL (0.2-1.2); Calc. Creatinine Clearance 0 mL/min (70-130); Calcium 9.5 mg/dL (7.8-10.44); Carbon Dioxide 21 mmol/L (23-31); Chloride 101 mmol/L (98-107); Globulin 3.4 g/dL (2.4-3.5); Glucose 105 mg/dL (80-115); Potassium 4.4 mmol/L (3.5-5.1); Protein, Total 6.8 g/dL (5.8-8.1); Sodium 138 mmol/L (136-145)
[2021-06-11 10:28] LABS: CKMB 1.9 ng/mL (0-6.6)
[2021-06-11] MEDS ORDERED: Enoxaparin Sodium 30 MG/0.3 ML SYRINGE ONE (10:30)
[2021-06-11] MEDS ORDERED: Aspirin Chewable 81 MG TAB ONE (10:30)
[2021-06-11] MEDS ORDERED: Enoxaparin Sodium 40 MG/0.4 ML SYRINGE ONE (10:30)
[2021-06-11] MEDS ORDERED: Nitroglycerin 2% Ointment 1 INCH/1 GM Packet ONE (10:38)
[2021-06-11 11:28] LABS: SARS-CoV-2 NAA Rapid Test Not Detected (NotDetected)
[2021-06-11] MEDS ORDERED: Ondansetron ODT 4 MG TAB PO PRN (12:09)
[2021-06-11] MEDS ORDERED: Ondansetron PF 4 MG/2 ML Vial IVP PRN (12:09)
[2021-06-11] MEDS ORDERED: Acetaminophen 650 MG Suppository PR PRN (12:09)
[2021-06-11] MEDS ORDERED: Acetaminophen 325 MG TAB PO PRN (12:09)
[2021-06-11 13:50] LABS: CKMB 2.1 ng/mL (0-6.6)
[2021-06-11] MEDS ORDERED: Bupivacaine HCl 0.5%/Epinephrine 1:200,000/PF 30 ml Vial ONE (14:45)
[2021-06-11 16:46] LABS: CKMB 2.1 ng/mL (0-6.6)
[2021-06-11 16:55] VITALS: BMI 28.5
[2021-06-11] MEDS: Furosemide 40 MG/4 ML VIAL SLOW IVP SCH (17:01)
[2021-06-11] MEDS: Atorvastatin Calcium 40 MG TAB PO SCH (20:28)
[2021-06-11] MEDS ORDERED: Heparin 5,000 UNITS/ML VIAL SC SCH (21:00)
[2021-06-12 05:12] LABS: #Basophils 0.1 thou/uL (0.0-0.2); #Eosinphils 0.3 thou/uL (0.0-0.7); #Lymphocytes 1.4 thou/uL (1.20-3.40); #Monocytes 0.8 thou/uL (0.11-0.59); #Neutrophils 8.6 thou/uL (1.40-6.50); %Basophils 0.6 % (0.0-1.0); %Eosinophils 2.6 % (0.0-10.0); %Lymphocytes 12.5 % (21.0-51.0); %Neutrophils 77.3 % (42.0-75.0); Hemoglobin 8.2 g/dL (12.0-16.0); Mean Corpuscular Hemoglobin 31.7 pg (27.0-31.0); Mean Corpuscular Volume 98.9 fL (78.0-98.0); Mean Platelet Volume 7.3 fL (7.4-10.4); Platelet Count 511 thou/uL (130-400); RBC Distribution Width 14.5 % (11.5-14.5); Red Blood Cell (RBC) Count 2.59 mill/uL (4.20-5.40); White Blood Cell (WBC) Count 11.2 thou/uL (4.8-10.8)
[2021-06-12 05:27] LABS: Anion Gap 18 mmol/L (10-20); BUN (Urea Nitrogen) 79 mg/dL (9.8-20.1); Calc. Creatinine Clearance 9 mL/min (70-130); Calcium 8.9 mg/dL (7.8-10.44); Carbon Dioxide 22 mmol/L (23-31); Chloride 100 mmol/L (98-107); Glucose 116 mg/dL (80-115); Potassium 4.7 mmol/L (3.5-5.1); Sodium 135 mmol/L (136-145)
[2021-06-12] MEDS: Furosemide 40 MG/4 ML VIAL SLOW IVP SCH ×2 (06:16→18:15)
[2021-06-12] MEDS ORDERED: Epoetin (ESRD) 20,000 UNITS/ML SC SCH (07:45)
[2021-06-12] MEDS ORDERED: Tuberculin PPD 0.1 ML VIAL I-DERMAL SCH (07:45)
[2021-06-12] MEDS ORDERED: CEFAZOLIN 2 GM in Premix Bag 1 BAG IVPB SCH (07:45)
[2021-06-12] MEDS ORDERED: ceFAZolin Sodium/D5W 2 GM in Premix Bag 1 BAG IVPB SCH ×2 (08:00→18:45)
[2021-06-12] MEDS: Aspirin 325 MG TAB PO SCH (08:50)
[2021-06-12] MEDS: Ferrous Sulfate 325 MG TAB PO SCH ×2 (08:51→18:16)
[2021-06-12] MEDS ORDERED: Aspirin Chewable 81 MG TAB PO SCH (09:00)
[2021-06-12] MEDS ORDERED: FLU VACC QS2021-22(65YR UP)/PF 240 MCG/0.7 ML SYRINGE IM ONE (09:00)
[2021-06-12] MEDS ORDERED: Heparin 10,000 UNITS/ 10 ML VIAL ONE ×2 (09:31→16:14)
[2021-06-12 10:22] LABS: HBSAB Concentration Less than 8.00 mIU/mL; HBSAg Index 0.21 S/CO (0-0.99); Hep B Core Total Ab Non-Reactive (NonReactive); Hep B Surf AB Non-Reactive (NonReactive); Hep B Surf Ag Non-Reactive S/CO (NonReactive); Hep C IgG Ab Non-Reactive (NonReactive); Hep C Index 0.08 S/CO (0-0.79)
[2021-06-12] MEDS ORDERED: ceFAZolin 2 GM/DEX 5% 100 ML BAG ONE (12:42)
[2021-06-12] MEDS ORDERED: Protamine Sulfate 50 MG/5 ML VIAL ONE (16:14)
[2021-06-12] MEDS ORDERED: Bupivacaine PF 0.5% 30 ML VIAL ONE (16:14)
[2021-06-12] MEDS ORDERED: Lidocaine 1% w/Epinephrine 1:100K 20 ML VIAL ONE (16:14)
[2021-06-12] MEDS ORDERED: Heparin 5,000 UNITS/ML VIAL ONE (16:14)
[2021-06-12] MEDS ORDERED: Ioversol 68 % 50 ML VIAL ONE (16:15)
[2021-06-12] MEDS ORDERED: Iothalamate Meglumine 60% 50 ML VIAL FS ONE (16:15)
[2021-06-12] MEDS ORDERED: Sodium Chloride 0.9% 30 ML ONE (16:15)
[2021-06-12] MEDS ORDERED: Fentanyl 100 MCG/2 ML VIAL ONE (16:21)
[2021-06-12] MEDS ORDERED: Midazolam HCl 2 mg/2 ml Vial ONE (16:21)
[2021-06-12] MEDS ORDERED: Dexmedetomidine 200 MCG/2 ML VIAL ONE (16:54)
[2021-06-12] MEDS: EPOETIN ALFA-EPBX (ESRD) 4,000 UNIT/ML VIAL SC SCH (21:24)
[2021-06-12] MEDS: Atorvastatin Calcium 40 MG TAB PO SCH (21:24)
[2021-06-13 04:42] LABS: #Eosinphils 0.1 thou/uL (0.0-0.7); #Lymphocytes 1.5 thou/uL (1.20-3.40); #Monocytes 0.9 thou/uL (0.11-0.59); #Neutrophils 10.2 thou/uL (1.40-6.50); %Basophils 0.4 % (0.0-1.0); %Eosinophils 0.9 % (0.0-10.0); %Lymphocytes 11.5 % (21.0-51.0); %Neutrophils 80.3 % (42.0-75.0); Hemoglobin 8.2 g/dL (12.0-16.0); Mean Corpuscular HGB CONC 32.6 g/dL (32.0-36.0); Mean Corpuscular Hemoglobin 32.6 pg (27.0-31.0); Mean Corpuscular Volume 99.9 fL (78.0-98.0); Mean Platelet Volume 7.2 fL (7.4-10.4); Platelet Count 444 thou/uL (130-400); RBC Distribution Width 14.8 % (11.5-14.5); Red Blood Cell (RBC) Count 2.52 mill/uL (4.20-5.40); White Blood Cell (WBC) Count 12.7 thou/uL (4.8-10.8)
[2021-06-13 04:58] LABS: Anion Gap 21 mmol/L (10-20); BUN (Urea Nitrogen) 61 mg/dL (9.8-20.1); Calc. Creatinine Clearance 10 mL/min (70-130); Calcium 8.9 mg/dL (7.8-10.44); Carbon Dioxide 22 mmol/L (23-31); Chloride 101 mmol/L (98-107); Glucose 95 mg/dL (80-115); Potassium 4.6 mmol/L (3.5-5.1); Sodium 139 mmol/L (136-145)
[2021-06-13] MEDS: Furosemide 40 MG/4 ML VIAL SLOW IVP SCH (06:06)
[2021-06-13] MEDS ORDERED: Heparin 10,000 UNITS/ 10 ML VIAL ONE (09:47)
[2021-06-13] MEDS: Aspirin 325 MG TAB PO SCH (11:11)
[2021-06-13] MEDS: Ferrous Sulfate 325 MG TAB PO SCH ×2 (11:11→15:49)
[2021-06-13] MEDS: Sodium Bicarbonate Tab 325 MG TAB PO SCH ×2 (15:49→22:01)
[2021-06-13] MEDS ORDERED: ceFAZolin Sodium/D5W 2 GM in Premix Bag 1 BAG IVPB SCH (16:30)
[2021-06-13] MEDS: Atorvastatin Calcium 40 MG TAB PO SCH (22:00)
[2021-06-14] MEDS ORDERED: Heparin 10,000 UNITS/ 10 ML VIAL ONE (08:53)
[2021-06-14] MEDS: Ferrous Sulfate 325 MG TAB PO SCH ×2 (09:50→14:51)
[2021-06-14] MEDS: Calcitriol 0.25 MCG CAP PO SCH (09:50)
[2021-06-14] MEDS: Amlodipine 10 MG TAB PO SCH (09:50)
[2021-06-14] MEDS: Aspirin 325 MG TAB PO SCH (09:50)
[2021-06-14] MEDS: Sodium Bicarbonate Tab 325 MG TAB PO SCH ×3 (09:51→21:58)
[2021-06-14] MEDS ORDERED: Heparin 5,000 UNITS/ML VIAL ONE (10:06)
[2021-06-14] MEDS ORDERED: Protamine Sulfate 50 MG/5 ML VIAL ONE (10:06)
[2021-06-14] MEDS ORDERED: Fentanyl 100 MCG/2 ML VIAL ONE (10:07)
[2021-06-14] MEDS ORDERED: Lidocaine 1% w/Epinephrine 1:100K 20 ML VIAL ONE (10:08)
[2021-06-14] MEDS ORDERED: Bupivacaine PF 0.5% 30 ML VIAL ONE (10:08)
[2021-06-14] MEDS ORDERED: ceFAZolin 2 GM/DEX 5% 100 ML BAG ONE (10:21)
[2021-06-14] MEDS ORDERED: PHENYLEPHRINE-NS 100 MCG/ML 10 ML SYRINGE ONE (10:36)
[2021-06-14] MEDS ORDERED: Lidocaine 1% PF 5 ML VIAL ONE (10:36)
[2021-06-14] MEDS ORDERED: Ondansetron PF 4 MG/2 ML Vial ONE (10:36)
[2021-06-14] MEDS ORDERED: Dexamethasone 20 MG/5 ML VIAL ONE (10:36)
[2021-06-14] MEDS ORDERED: ePHEDrine 50 MG/ML VIAL ONE (10:36)
[2021-06-14] MEDS ORDERED: ePHEDrine Sulfate 50 MG/10 ML VIAL ONE (11:35)
[2021-06-14] MEDS ORDERED: Promethazine HCl 25 MG/ML VIAL IVPB PRN (12:03)
[2021-06-14] MEDS ORDERED: Promethazine HCl 25 MG/ML VIAL IM PRN (12:03)
[2021-06-14] MEDS ORDERED: Ondansetron HCl/PF 4 MG/2 ML Vial IVP PRN (12:03)
[2021-06-14 14:38] LABS: #Lymphocytes 0.6 thou/uL (1.20-3.40); #Monocytes 0.3 thou/uL (0.11-0.59); #Neutrophils 9.1 thou/uL (1.40-6.50); %Basophils 0.3 % (0.0-1.0); %Eosinophils 0.4 % (0.0-10.0); %Lymphocytes 5.5 % (21.0-51.0); %Monocytes 3.1 % (0.0-10.0); %Neutrophils 90.7 % (42.0-75.0); Hemoglobin 7.9 g/dL (12.0-16.0); Mean Corpuscular HGB CONC 32.3 g/dL (32.0-36.0); Mean Corpuscular Hemoglobin 32.9 pg (27.0-31.0); Mean Platelet Volume 7.3 fL (7.4-10.4); Platelet Count 386 thou/uL (130-400); RBC Distribution Width 15.3 % (11.5-14.5)
[2021-06-14 14:57] LABS: Anion Gap 17 mmol/L (10-20); BUN (Urea Nitrogen) 56 mg/dL (9.8-20.1); Calc. Creatinine Clearance 9 mL/min (70-130); Calcium 8.9 mg/dL (7.8-10.44); Carbon Dioxide 26 mmol/L (23-31); Cardiac Risk 4.2 (Less than 4.5); Chloride 100 mmol/L (98-107); Cholesterol 92 mg/dl (< 200 Desired); Glucose 115 mg/dL (80-115); HDL Cholesterol 22 mg/dL (>60 Neg Risk); LDL Cholesterol, Calculated 50 mg/dL; Phosphorus 5.4 mg/dL (2.3-4.7); Potassium 4.5 mmol/L (3.5-5.1); Sodium 138 mmol/L (136-145); Triglycerides 99 mg/dL (Less than 150)
[2021-06-14] MEDS: Atorvastatin Calcium 40 MG TAB PO SCH (21:58)
[2021-06-15 05:36] LABS: #Lymphocytes 1.4 thou/uL (1.20-3.40); #Monocytes 1.1 thou/uL (0.11-0.59); #Neutrophils 9.2 thou/uL (1.40-6.50); %Basophils 0.1 % (0.0-1.0); %Eosinophils 0.1 % (0.0-10.0); %Lymphocytes 11.7 % (21.0-51.0); %Monocytes 9.2 % (0.0-10.0); %Neutrophils 78.9 % (42.0-75.0); Hemoglobin 9.9 g/dL (12.0-16.0); Mean Corpuscular HGB CONC 32.4 g/dL (32.0-36.0); Mean Corpuscular Hemoglobin 32.5 pg (27.0-31.0); Mean Platelet Volume 7.2 fL (7.4-10.4); Platelet Count 344 thou/uL (130-400); RBC Distribution Width 15.3 % (11.5-14.5); Red Blood Cell (RBC) Count 3.03 mill/uL (4.20-5.40); White Blood Cell (WBC) Count 11.6 thou/uL (4.8-10.8)
[2021-06-15 05:54] LABS: Anion Gap 19 mmol/L (10-20); BUN (Urea Nitrogen) 26 mg/dL (9.8-20.1); Calc. Creatinine Clearance 13 mL/min (70-130); Carbon Dioxide 26 mmol/L (23-31); Chloride 98 mmol/L (98-107); Glucose 100 mg/dL (80-115); Potassium 4.1 mmol/L (3.5-5.1); Sodium 139 mmol/L (136-145)
[2021-06-15] MEDS: Ferrous Sulfate 325 MG TAB PO SCH ×2 (08:41→15:33)
[2021-06-15] MEDS ORDERED: Heparin 10,000 UNITS/ 10 ML VIAL ONE (08:50)
[2021-06-15] MEDS ORDERED: READ PPD TEST SITE PO SCH (09:00)
[2021-06-15] MEDS: Aspirin 325 MG TAB PO SCH (13:41)
[2021-06-15] MEDS: Calcitriol 0.25 MCG CAP PO SCH (13:41)
[2021-06-15] MEDS: Sodium Bicarbonate Tab 325 MG TAB PO SCH ×4 (13:41→20:14)
[2021-06-15] MEDS: Amlodipine 10 MG TAB PO SCH (14:11)
[2021-06-15] MEDS: Carvedilol 6.25 MG TAB PO SCH (15:33)
[2021-06-15] MEDS: Atorvastatin Calcium 40 MG TAB PO SCH (20:13)
[2021-06-16 05:40] LABS: #Eosinphils 0.3 thou/uL (0.0-0.7); #Lymphocytes 1.6 thou/uL (1.20-3.40); %Basophils 0.2 % (0.0-1.0); %Eosinophils 2.8 % (0.0-10.0); %Lymphocytes 13.7 % (21.0-51.0); %Monocytes 8.5 % (0.0-10.0); %Neutrophils 74.9 % (42.0-75.0); Hemoglobin 8.5 g/dL (12.0-16.0); Mean Corpuscular HGB CONC 32.1 g/dL (32.0-36.0); Mean Corpuscular Hemoglobin 32.7 pg (27.0-31.0); Mean Platelet Volume 7.2 fL (7.4-10.4); Platelet Count 333 thou/uL (130-400); RBC Distribution Width 15.3 % (11.5-14.5); Red Blood Cell (RBC) Count 2.59 mill/uL (4.20-5.40)
[2021-06-16 06:03] LABS: Anion Gap 13 mmol/L (10-20); BUN (Urea Nitrogen) 20 mg/dL (9.8-20.1); Calc. Creatinine Clearance 15 mL/min (70-130); Calcium 8.8 mg/dL (7.8-10.44); Carbon Dioxide 32 mmol/L (23-31); Chloride 96 mmol/L (98-107); Glucose 108 mg/dL (80-115); Potassium 3.8 mmol/L (3.5-5.1); Sodium 137 mmol/L (136-145)
[2021-06-16] MEDS: Carvedilol 6.25 MG TAB PO SCH ×2 (07:55→16:11)
[2021-06-16] MEDS: Ferrous Sulfate 325 MG TAB PO SCH ×2 (07:55→16:11)
[2021-06-16] MEDS: Sodium Bicarbonate Tab 325 MG TAB PO SCH ×3 (07:55→22:30)
[2021-06-16] MEDS: Aspirin 325 MG TAB PO SCH (07:55)
[2021-06-16] MEDS: Calcitriol 0.25 MCG CAP PO SCH (07:56)
[2021-06-16] MEDS: Atorvastatin Calcium 40 MG TAB PO SCH (22:30)
[2021-06-16] MEDS: Docusate 100 MG CAP PO SCH (22:30)
[2021-06-17] MEDS ORDERED: Heparin 10,000 UNITS/ 10 ML VIAL ONE (08:54)
[2021-06-17] MEDS: Carvedilol 6.25 MG TAB PO SCH ×2 (08:56→17:05)
[2021-06-17] MEDS: Sodium Bicarbonate Tab 325 MG TAB PO SCH ×3 (08:56→21:14)
[2021-06-17] MEDS: Aspirin 325 MG TAB PO SCH (08:57)
[2021-06-17] MEDS: Calcitriol 0.25 MCG CAP PO SCH (08:57)
[2021-06-17] MEDS: Docusate 100 MG CAP PO SCH ×2 (08:57→21:15)
[2021-06-17] MEDS: Ferrous Sulfate 325 MG TAB PO SCH ×2 (08:57→17:05)
[2021-06-17] MEDS: Atorvastatin Calcium 40 MG TAB PO SCH (21:15)
[2021-06-18] MEDS: Sodium Bicarbonate Tab 325 MG TAB PO SCH ×3 (08:20→20:50)
[2021-06-18] MEDS: Docusate 100 MG CAP PO SCH ×2 (08:21→20:50)
[2021-06-18] MEDS: Aspirin 325 MG TAB PO SCH (08:21)
[2021-06-18] MEDS: Ferrous Sulfate 325 MG TAB PO SCH ×2 (08:21→17:39)
[2021-06-18] MEDS: Carvedilol 6.25 MG TAB PO SCH ×2 (08:21→17:54)
[2021-06-18] MEDS: Calcitriol 0.25 MCG CAP PO SCH (08:22)
[2021-06-18] MEDS ORDERED: Magnesium Citrate 300 ML BOT PO SCH (13:00)
[2021-06-18] MEDS: Atorvastatin Calcium 40 MG TAB PO SCH (20:50)
[2021-06-19 01:01] LABS: SARS-CoV-2 PCR by NAA Not Detected (NotDetected)
[2021-06-19 04:25] LABS: Anion Gap 18 mmol/L (10-20); BUN (Urea Nitrogen) 39 mg/dL (9.8-20.1); Calc. Creatinine Clearance 10 mL/min (70-130); Carbon Dioxide 29 mmol/L (23-31); Chloride 93 mmol/L (98-107); Glucose 116 mg/dL (80-115); Potassium 3.7 mmol/L (3.5-5.1); Sodium 136 mmol/L (136-145)
[2021-06-19] MEDS ORDERED: Heparin 10,000 UNITS/ 10 ML VIAL ONE (10:08)
[2021-06-19 12:27] VITALS: TEMP 98.6
[2021-06-19] MEDS: Aspirin 325 MG TAB PO SCH (13:10)
[2021-06-19] MEDS: Ferrous Sulfate 325 MG TAB PO SCH (13:11)
[2021-06-19] MEDS: EPOETIN ALFA-EPBX (ESRD) 4,000 UNIT/ML VIAL SC SCH (13:12)
[2021-06-19] MEDS: Carvedilol 6.25 MG TAB PO SCH (13:12)
[2021-06-19] MEDS: Docusate 100 MG CAP PO SCH (13:12)
[2021-06-19] MEDS: Calcitriol 0.25 MCG CAP PO SCH (13:13)
[2021-06-19 13:20] VITALS: BP 124/67
== END 2021-06-19 15:35 | disposition home or self-care (01) | DRG 264 ==
LOC: ERS 08:29 → ERHOLD 11:10 → 2NO 15:50
PROVIDERS: ADMIT Family Medicine; ATTEND Family Medicine
PROC: 0JH63XZ Insertion of Tunneled Vascular Access Device into Chest Subcutaneous Tissue and Fascia, Percutaneous Approach (ICD-10-PCS; 2021-06-12)
PROC: 02HV33Z Insertion of Infusion Device into Superior Vena Cava, Percutaneous Approach (ICD-10-PCS; 2021-06-12)
PROC: B548ZZA Ultrasonography of Superior Vena Cava, Guidance (ICD-10-PCS; 2021-06-12)
PROC: 5A1D70Z Performance of Urinary Filtration, Intermittent, Less than 6 Hours Per Day (ICD-10-PCS; 2021-06-12)
PROC: 031B0ZF Bypass Right Radial Artery to Lower Arm Vein, Open Approach (ICD-10-PCS; principal; 2021-06-14)
DX: I13.2 Hypertensive heart and chronic kidney disease with heart failure and with stage 5 chronic kidney disease, or end stage renal disease (principal); N18.6 End stage renal disease; I21.A1 Myocardial infarction type 2; I50.23 Acute on chronic systolic (congestive) heart failure; N17.9 Acute kidney failure, unspecified; N25.81 Secondary hyperparathyroidism of renal origin; Z20.822 Contact with and (suspected) exposure to COVID-19; I25.5 Ischemic cardiomyopathy; E78.5 Hyperlipidemia, unspecified; I25.10 Atherosclerotic heart disease of native coronary artery without angina pectoris; E78.00 Pure hypercholesterolemia, unspecified; D63.1 Anemia in chronic kidney disease; Z79.899 Other long term (current) drug therapy; Z79.82 Long term (current) use of aspirin; Z90.49 Acquired absence of other specified parts of digestive tract; Z98.51 Tubal ligation status; I95.1 Orthostatic hypotension
CPT/HCPCS: 36415; 71045; 80048; 80053; 80061; 82553; 82805; 83735; 83880; 83970; 84100; 84443; 84484; 85025; 86580; 86704; 86706; 86803; 86850; 86900; 86901; 87340; 90935; 93005; 93306; 93798; 93970; 96372; 96374; C1751; C1752; G0257; J1100; J1644; J1650; J1940; J2250; J2405; J2720; J3010; J3490; Q5105; Q9961-U8; Q9967; S0020; U0002; U0003; U0005

== ENCOUNTER 2021-09-03 16:08 | Outpatient (CLI) | payer BC, MEDICARE ==
[2021-09-04 09:53] LABS: SARS-CoV-2 PCR by NAA Not Detected (NotDetected)
== END 2021-09-03 16:09 | disposition home or self-care (01) ==
LOC: LABBT 16:08
PROVIDERS: ATTEND Internal Medicine Cardiovascular Disease
DX: Z01.812 Encounter for preprocedural laboratory examination (principal); Z20.822 Contact with and (suspected) exposure to COVID-19
CPT/HCPCS: U0003; U0005

== ENCOUNTER 2021-09-05 12:10 | Day surgery (SDC) | payer BC, MEDICARE ==
[2021-09-04 10:55] VITALS: BMI 26.3
[2021-09-05] MEDS ORDERED: Ketamine 50 MG/ML (10ML VIAL) ONE (13:15)
[2021-09-05] MEDS ORDERED: Benzocaine 20% Spray 60 ML CAN ONE (13:27)
[2021-09-05] MEDS ORDERED: PROPOFOL 200 MG/20 ML VIAL ONE (13:29)
== END 2021-09-05 14:45 | disposition short-term general hospital (02) ==
LOC: SDC 12:10
PROVIDERS: ATTEND Internal Medicine Cardiovascular Disease
PROC: B24BZZ4 Ultrasonography of Heart with Aorta, Transesophageal (ICD-10-PCS; principal; 2021-09-05)
DX: I13.11 Hypertensive heart and chronic kidney disease without heart failure, with stage 5 chronic kidney disease, or end stage renal disease (principal); N18.6 End stage renal disease; D63.1 Anemia in chronic kidney disease; I08.1 Rheumatic disorders of both mitral and tricuspid valves; I70.0 Atherosclerosis of aorta; I25.5 Ischemic cardiomyopathy; I25.10 Atherosclerotic heart disease of native coronary artery without angina pectoris; E78.5 Hyperlipidemia, unspecified; Z91.14 Patient's other noncompliance with medication regimen; Z79.82 Long term (current) use of aspirin; Z79.899 Other long term (current) drug therapy; Z99.2 Dependence on renal dialysis
CPT/HCPCS: 93312; J2704

== ENCOUNTER 2023-01-24 12:55 | Inpatient (IN) | payer BC, MEDICARE ==
[2023-01-24 13:49] LABS: #Eosinphils 0.1 thou/uL (0.0-0.7); #Monocytes 0.5 thou/uL (0.11-0.59); %Basophils 0.6 % (0.0-1.0); %Eosinophils 1.1 % (0.0-10.0); %Lymphocytes 12.5 % (21.0-51.0); %Monocytes 8.2 % (0.0-10.0); %Neutrophils 77.3 % (42.0-75.0); Hemoglobin 13.3 g/dL (12.0-16.0); Mean Corpuscular HGB CONC 33.1 g/dL (32.0-36.0); Mean Corpuscular Hemoglobin 32.1 pg (27.0-31.0); Mean Corpuscular Volume 97.1 fl (78.0-98.0); Mean Platelet Volume 9.5 fL (7.4-10.4); Platelet Count 150 10x3/uL (130-400); RBC Distribution Width 15.6 % (11.5-14.5); Red Blood Cell (RBC) Count 4.14 mill/uL (4.20-5.40); White Blood Cell (WBC) Count 6.5 10x3/uL (4.8-10.8)
[2023-01-24 14:12] LABS: Carbon Dioxide 30 mmol/L (23-31)
[2023-01-24 14:13] LABS: ALT (SGPT) 13 U/L (8-55); AST (SGOT) 28 U/L (5-34); Albumin 3.6 g/dL (3.4-4.8); Alkaline Phosphatase 171 U/L (40-110); BUN (Urea Nitrogen) 40 mg/dL (9.8-20.1); Bilirubin, Total 1.8 mg/dL (0.2-1.2); Calc. Creatinine Clearance 0 mL/min (70-130); Calcium 10.5 mg/dL (7.8-10.44); Chloride 96 mmol/L (98-107); Estimated GFR 11; Globulin 4.1 g/dL (2.4-3.5); Glucose 109 mg/dL (80-115); Potassium 3.8 mmol/L (3.5-5.1); Protein, Total 7.7 g/dL (5.8-8.1); Sodium 138 mmol/L (136-145)
[2023-01-24 14:23] LABS: Anion Gap 16 mmol/L (10-20)
[2023-01-24 14:35] LABS: CKMB 3.6 ng/mL (0-6.6)
[2023-01-24] MEDS ORDERED: Guaifenesin DM 100-10/5 ML UDCUP PO PRN (16:10)
[2023-01-24] MEDS ORDERED: Ondansetron PF 4 MG/2 ML Vial IVP PRN (16:10)
[2023-01-24] MEDS ORDERED: Acetaminophen 500 MG TAB ONE (16:50)
[2023-01-24 17:25] LABS: Troponin I 0.186 ng/mL (< 0.028)
[2023-01-24 17:40] LABS: HBSAB Concentration Less than 8.00 mIU/mL; Hep B Surf AB Non-Reactive (NonReactive)
[2023-01-24 18:07] VITALS: BMI 23.9
[2023-01-24 19:45] LABS: Hep B Surf Ag Reflx Confirmation S/CO (NonReactive)
[2023-01-24 19:46] LABS: HBSAg Index 4.45 S/CO (0-0.99)
[2023-01-24 19:55] LABS: Troponin I 0.182 ng/mL (< 0.028)
[2023-01-24] MEDS: Atorvastatin Calcium 40 MG TAB PO SCH (22:30)
[2023-01-24] MEDS: Carvedilol 3.125 MG TAB PO SCH (22:31)
[2023-01-25 04:54] LABS: #Basophils 0.1 thou/uL (0.0-0.2); #Eosinphils 0.2 thou/uL (0.0-0.7); #Monocytes 0.8 thou/uL (0.11-0.59); #Neutrophils 5.2 thou/uL (1.40-6.50); %Basophils 0.7 % (0.0-1.0); %Eosinophils 2.1 % (0.0-10.0); %Lymphocytes 13.8 % (21.0-51.0); %Monocytes 11.3 % (0.0-10.0); Hemoglobin 13.3 g/dL (12.0-16.0); Mean Corpuscular HGB CONC 32.9 g/dL (32.0-36.0); Mean Corpuscular Hemoglobin 32.4 pg (27.0-31.0); Mean Corpuscular Volume 98.5 fl (78.0-98.0); Mean Platelet Volume 9.5 fL (7.4-10.4); Platelet Count 161 10x3/uL (130-400); RBC Distribution Width 15.5 % (11.5-14.5); White Blood Cell (WBC) Count 7.2 10x3/uL (4.8-10.8)
[2023-01-25 05:18] LABS: Anion Gap 16 mmol/L (10-20); BUN (Urea Nitrogen) 19 mg/dL (9.8-20.1); Calc. Creatinine Clearance 18 mL/min (70-130); Calcium 10.1 mg/dL (7.8-10.44); Carbon Dioxide 24 mmol/L (23-31); Chloride 99 mmol/L (98-107); Estimated GFR 19; Glucose 89 mg/dL (80-115); Potassium 3.8 mmol/L (3.5-5.1); Sodium 135 mmol/L (136-145)
[2023-01-25] MEDS: Carvedilol 3.125 MG TAB PO SCH ×2 (09:30→21:22)
[2023-01-25] MEDS: Aspirin Chewable 81 MG TAB PO SCH (09:30)
[2023-01-25] MEDS: Acetaminophen 325 MG TAB PO PRN ×2 (09:30→19:52)
[2023-01-25] MEDS: Calcitriol 0.25 MCG CAP PO SCH (09:30)
[2023-01-25] MEDS: Ferrous Sulfate 325 MG TAB PO SCH (09:30)
[2023-01-25 13:51] LABS: Protein, Total 7.3 g/dL (5.8-8.1)
[2023-01-25 14:47] LABS: Fluid, pH - Pleural Fld Greater than 7.50 (7.60 - 7.66)
[2023-01-25 14:54] LABS: RBC Count-Automated (BF) 34 /cu.mm; WBC/Nucleated-Auto (BF) 23 /cu.mm
[2023-01-25 15:06] LABS: Pleural Fluid, Protein 4.3 g/dL
[2023-01-25 15:20] LABS: BF Color Yellow; Body Fluid Source Pleural Fluid; Clarity Hazy (Clear); Tube # EDTA
[2023-01-25 15:25] LABS: BF Segmented Neutrophils 2 %; Cell Count Non Hematic 94 %; Lymphocytes 4 %
[2023-01-25] MEDS ORDERED: Albuterol 200 PUFF (6.7GM INHALER) INH PRN (18:33)
[2023-01-25] MEDS: Heparin 5,000 UNITS/ML VIAL SC SCH (21:27)
[2023-01-25] MEDS: traZODone HCl 50 MG TAB PO PRN (21:27)
[2023-01-25] MEDS: Atorvastatin Calcium 40 MG TAB PO SCH (21:27)
[2023-01-26] MEDS: Acetaminophen 325 MG TAB PO PRN (02:03)
[2023-01-26 04:25] LABS: #Eosinphils 0.1 thou/uL (0.0-0.7); #Monocytes 0.8 thou/uL (0.11-0.59); #Neutrophils 6.5 thou/uL (1.40-6.50); %Basophils 0.5 % (0.0-1.0); %Eosinophils 1.2 % (0.0-10.0); %Lymphocytes 11.4 % (21.0-51.0); %Monocytes 9.6 % (0.0-10.0); %Neutrophils 76.8 % (42.0-75.0); Hemoglobin 13.6 g/dL (12.0-16.0); Mean Corpuscular HGB CONC 32.6 g/dL (32.0-36.0); Mean Corpuscular Hemoglobin 32.2 pg (27.0-31.0); Mean Corpuscular Volume 98.8 fl (78.0-98.0); Mean Platelet Volume 9.7 fL (7.4-10.4); Platelet Count 169 10x3/uL (130-400); RBC Distribution Width 15.7 % (11.5-14.5); Red Blood Cell (RBC) Count 4.22 mill/uL (4.20-5.40); White Blood Cell (WBC) Count 8.4 10x3/uL (4.8-10.8)
[2023-01-26 05:45] LABS: Anion Gap 19 mmol/L (10-20); BUN (Urea Nitrogen) 41 mg/dL (9.8-20.1); Calc. Creatinine Clearance 12 mL/min (70-130); Calcium 10.2 mg/dL (7.8-10.44); Carbon Dioxide 22 mmol/L (23-31); Chloride 98 mmol/L (98-107); Estimated GFR 12; Glucose 96 mg/dL (80-115); Potassium 4.3 mmol/L (3.5-5.1); Sodium 135 mmol/L (136-145)
[2023-01-26] MEDS: Heparin 5,000 UNITS/ML VIAL SC SCH ×3 (09:12→21:02)
[2023-01-26] MEDS ORDERED: Heparin 10,000 UNITS/ 10 ML VIAL ONE (10:04)
[2023-01-26] MEDS: Carvedilol 3.125 MG TAB PO SCH ×2 (16:34→21:02)
[2023-01-26] MEDS: Calcitriol 0.25 MCG CAP PO SCH (16:34)
[2023-01-26] MEDS: Aspirin Chewable 81 MG TAB PO SCH (16:34)
[2023-01-26] MEDS: Ferrous Sulfate 325 MG TAB PO SCH (16:35)
[2023-01-26] MEDS: Atorvastatin Calcium 40 MG TAB PO SCH (21:01)
[2023-01-26] MEDS: traZODone HCl 50 MG TAB PO PRN (21:01)
[2023-01-27] MEDS: Acetaminophen 325 MG TAB PO PRN (01:06)
[2023-01-27 05:20] LABS: Anion Gap 16 mmol/L (10-20); BUN (Urea Nitrogen) 25 mg/dL (9.8-20.1); Calc. Creatinine Clearance 17 mL/min (70-130); Carbon Dioxide 25 mmol/L (23-31); Chloride 97 mmol/L (98-107); Estimated GFR 18; Glucose 93 mg/dL (80-115); Potassium 3.7 mmol/L (3.5-5.1); Sodium 134 mmol/L (136-145)
[2023-01-27 07:38] VITALS: TEMP 97.4
[2023-01-27] MEDS: Calcitriol 0.25 MCG CAP PO SCH (08:52)
[2023-01-27] MEDS: Ferrous Sulfate 325 MG TAB PO SCH (08:52)
[2023-01-27] MEDS: Carvedilol 3.125 MG TAB PO SCH (08:53)
[2023-01-27] MEDS: Heparin 5,000 UNITS/ML VIAL SC SCH (08:53)
[2023-01-27] MEDS: Aspirin Chewable 81 MG TAB PO SCH (08:53)
[2023-01-27 11:50] VITALS: BP 117/57
== END 2023-01-27 11:23 | disposition home or self-care (01) | DRG 291 ==
LOC: ERS 12:55 → 2NO 15:51
PROVIDERS: ADMIT Family Medicine; ATTEND Family Medicine
PROC: 0W993ZZ Drainage of Right Pleural Cavity, Percutaneous Approach (ICD-10-PCS; principal; 2023-01-25)
PROC: 5A1D70Z Performance of Urinary Filtration, Intermittent, Less than 6 Hours Per Day (ICD-10-PCS; 2023-01-26)
DX: I13.2 Hypertensive heart and chronic kidney disease with heart failure and with stage 5 chronic kidney disease, or end stage renal disease (principal); I50.43 Acute on chronic combined systolic (congestive) and diastolic (congestive) heart failure; J96.01 Acute respiratory failure with hypoxia; N18.6 End stage renal disease; J91.8 Pleural effusion in other conditions classified elsewhere; N25.81 Secondary hyperparathyroidism of renal origin; I25.10 Atherosclerotic heart disease of native coronary artery without angina pectoris; D63.1 Anemia in chronic kidney disease; I25.5 Ischemic cardiomyopathy; E78.5 Hyperlipidemia, unspecified; Z99.2 Dependence on renal dialysis; Z79.899 Other long term (current) drug therapy; Z82.49 Family history of ischemic heart disease and other diseases of the circulatory system; Z82.0 Family history of epilepsy and other diseases of the nervous system; Z84.1 Family history of disorders of kidney and ureter; Z79.82 Long term (current) use of aspirin; Z95.810 Presence of automatic (implantable) cardiac defibrillator
CPT/HCPCS: 36415; 71045; 71250; 80048; 80053; 82150; 82553; 82945; 83615; 83880; 83986; 84155; 84157; 84443; 84478; 84484; 85025; 85060; 86706; 87070; 87116; 87205; 87206; 87340; 88112; 88305; 89051; 90935; 93005; 93306; 93798; G0257; J1644; J1650

== ENCOUNTER 2023-02-07 06:56 | Inpatient (IN) | payer MEDICARE ==
[2023-02-07 07:26] LABS: #Basophils 0.1 thou/uL (0.0-0.2); #Eosinphils 0.2 thou/uL (0.0-0.7); #Monocytes 0.8 thou/uL (0.11-0.59); #Neutrophils 6.1 thou/uL (1.40-6.50); %Basophils 0.7 % (0.0-1.0); %Eosinophils 2.9 % (0.0-10.0); %Lymphocytes 11.9 % (21.0-51.0); %Monocytes 10.2 % (0.0-10.0); %Neutrophils 74.1 % (42.0-75.0); Hemoglobin 13.5 g/dL (12.0-16.0); Mean Corpuscular HGB CONC 32.8 g/dL (32.0-36.0); Mean Corpuscular Hemoglobin 32.5 pg (27.0-31.0); Mean Platelet Volume 9.7 fL (7.4-10.4); Platelet Count 221 10x3/uL (130-400); RBC Distribution Width 15.8 % (11.5-14.5); Red Blood Cell (RBC) Count 4.16 mill/uL (4.20-5.40); White Blood Cell (WBC) Count 8.2 10x3/uL (4.8-10.8)
[2023-02-07 07:51] LABS: ALT (SGPT) 13 U/L (8-55); AST (SGOT) 29 U/L (5-34); Albumin 3.6 g/dL (3.4-4.8); Alkaline Phosphatase 198 U/L (40-110); Anion Gap 18 mmol/L (10-20); BUN (Urea Nitrogen) 29 mg/dL (9.8-20.1); Calc. Creatinine Clearance 0 mL/min (70-130); Calcium 8.8 mg/dL (7.8-10.44); Carbon Dioxide 31 mmol/L (23-31); Chloride 95 mmol/L (98-107); Estimated GFR 14; Globulin 4.2 g/dL (2.4-3.5); Glucose 91 mg/dL (80-115); Lipase 64 U/L (8-78); Potassium 3.5 mmol/L (3.5-5.1); Protein, Total 7.8 g/dL (5.8-8.1); Sodium 140 mmol/L (136-145)
[2023-02-07 08:12] LABS: CKMB 1.3 ng/mL (0-6.6)
[2023-02-07] MEDS ORDERED: fentaNYL 50 mcg/mL 1 mL Vial ONE ×2 (09:22→12:41)
[2023-02-07] MEDS ORDERED: Lidocaine 1% PF 5 ML VIAL ONE (09:42)
[2023-02-07] MEDS ORDERED: fentaNYL 50 mcg/mL 1 mL Vial SLOW IVP PRN (10:14)
[2023-02-07] MEDS ORDERED: traZODone HCl 50 MG TAB PO PRN (10:19)
[2023-02-07] MEDS ORDERED: Albuterol 200 PUFF (6.7GM INHALER) INH PRN (10:19)
[2023-02-07] MEDS ORDERED: HYDROcodone/Acetaminophen 5/325 mg Tablet PO PRN (10:20)
[2023-02-07] MEDS ORDERED: Ondansetron PF 4 MG/2 ML Vial IVP PRN (10:20)
[2023-02-07 11:20] LABS: Troponin I 0.088 ng/mL (< 0.028)
[2023-02-07 13:45] LABS: Troponin I 0.096 ng/mL (< 0.028)
[2023-02-07] MEDS ORDERED: Metoclopramide HCl 10 MG TAB PO SCH (15:00)
[2023-02-07] MEDS: Acetaminophen 325 MG TAB PO PRN ×2 (15:19→20:44)
[2023-02-07] MEDS: Heparin 5,000 UNITS/ML VIAL SC SCH ×2 (15:20→20:46)
[2023-02-07] MEDS: Metoclopramide HCl 10 MG TAB PO SCH ×2 (15:20→20:45)
[2023-02-07] MEDS: Atorvastatin Calcium 40 MG TAB PO SCH (20:45)
[2023-02-07] MEDS: Carvedilol 3.125 MG TAB PO SCH (20:45)
[2023-02-07 20:51] LABS: RBC Count-Automated (BF) 6750 /cu.mm; WBC/Nucleated-Auto (BF) 182 /cu.mm
[2023-02-07 20:59] LABS: Pleural Fluid, Protein 3.1 g/dL
[2023-02-07 21:39] LABS: BF Color Yellow; Body Fluid Source Thoracentesis Fluid; Clarity Clear (Clear); Tube # EDTA
[2023-02-07 21:41] LABS: BF Segmented Neutrophils 66 %; Cell Count Non Hematic 17 %; Lymphocytes 17 %
[2023-02-07] MEDS: HYDROcodone/Acetaminophen 5/325 mg Tablet PO PRN (22:25)
[2023-02-08 05:40] LABS: #Basophils 0.1 thou/uL (0.0-0.2); #Eosinphils 0.4 thou/uL (0.0-0.7); #Monocytes 0.7 thou/uL (0.11-0.59); #Neutrophils 6.1 thou/uL (1.40-6.50); %Basophils 1.1 % (0.0-1.0); %Eosinophils 4.4 % (0.0-10.0); %Lymphocytes 13.2 % (21.0-51.0); %Monocytes 8.8 % (0.0-10.0); %Neutrophils 72.1 % (42.0-75.0); Hemoglobin 13.5 g/dL (12.0-16.0); Mean Corpuscular HGB CONC 32.3 g/dL (32.0-36.0); Mean Corpuscular Hemoglobin 31.9 pg (27.0-31.0); Mean Corpuscular Volume 98.8 fl (78.0-98.0); Mean Platelet Volume 10.2 fL (7.4-10.4); Platelet Count 205 10x3/uL (130-400); RBC Distribution Width 15.8 % (11.5-14.5); Red Blood Cell (RBC) Count 4.23 mill/uL (4.20-5.40); White Blood Cell (WBC) Count 8.4 10x3/uL (4.8-10.8)
[2023-02-08 06:03] LABS: Anion Gap 19 mmol/L (10-20); BUN (Urea Nitrogen) 46 mg/dL (9.8-20.1); Calc. Creatinine Clearance 10 mL/min (70-130); Calcium 8.1 mg/dL (7.8-10.44); Carbon Dioxide 24 mmol/L (23-31); Chloride 97 mmol/L (98-107); Estimated GFR 11; Glucose 81 mg/dL (80-115); Potassium 4.1 mmol/L (3.5-5.1); Sodium 136 mmol/L (136-145)
[2023-02-08] MEDS: Acetaminophen 325 MG TAB PO PRN (06:37)
[2023-02-08] MEDS: Aspirin Chewable 81 MG TAB PO SCH (08:49)
[2023-02-08] MEDS: Folic Acid/Vit B Comp W-C PO SCH (08:54)
[2023-02-08] MEDS: Metoclopramide HCl 10 MG TAB PO SCH ×3 (08:55→21:06)
[2023-02-08] MEDS: Carvedilol 3.125 MG TAB PO SCH ×2 (08:55→23:05)
[2023-02-08] MEDS: Heparin 5,000 UNITS/ML VIAL SC SCH ×3 (08:56→21:06)
[2023-02-08] MEDS ORDERED: FOLIC ACID PO SCH (09:00)
[2023-02-08] MEDS ORDERED: [UNRECOGNIZED DRUG - OTHER] PO SCH (09:00)
[2023-02-08] MEDS ORDERED: ZINC PO SCH (09:00)
[2023-02-08] MEDS ORDERED: VIT B COMPLX C PO SCH (09:00)
[2023-02-08] MEDS: HYDROcodone/Acetaminophen 5/325 mg Tablet PO PRN (09:14)
[2023-02-08] MEDS: traMADol HCl 50 MG TAB PO PRN (13:53)
[2023-02-08] MEDS: Atorvastatin Calcium 40 MG TAB PO SCH (21:05)
[2023-02-09 05:39] LABS: #Basophils 0.1 thou/uL (0.0-0.2); #Eosinphils 0.3 thou/uL (0.0-0.7); #Monocytes 0.7 thou/uL (0.11-0.59); #Neutrophils 5.7 thou/uL (1.40-6.50); %Basophils 0.6 % (0.0-1.0); %Eosinophils 4.2 % (0.0-10.0); %Lymphocytes 14.1 % (21.0-51.0); %Monocytes 9.1 % (0.0-10.0); %Neutrophils 71.7 % (42.0-75.0); Hemoglobin 13.9 g/dL (12.0-16.0); Mean Corpuscular HGB CONC 33.4 g/dL (32.0-36.0); Mean Corpuscular Hemoglobin 32.4 pg (27.0-31.0); Platelet Count 213 10x3/uL (130-400); RBC Distribution Width 15.5 % (11.5-14.5); Red Blood Cell (RBC) Count 4.29 mill/uL (4.20-5.40); White Blood Cell (WBC) Count 7.9 10x3/uL (4.8-10.8)
[2023-02-09 06:01] LABS: Anion Gap 23 mmol/L (10-20); BUN (Urea Nitrogen) 60 mg/dL (9.8-20.1); Calc. Creatinine Clearance 8 mL/min (70-130); Calcium 8.3 mg/dL (7.8-10.44); Carbon Dioxide 24 mmol/L (23-31); Chloride 91 mmol/L (98-107); Estimated GFR 8; Glucose 75 mg/dL (80-115); Potassium 5.6 mmol/L (3.5-5.1); Sodium 132 mmol/L (136-145)
[2023-02-09] MEDS: traMADol HCl 50 MG TAB PO PRN ×2 (06:19→20:26)
[2023-02-09] MEDS: Aspirin Chewable 81 MG TAB PO SCH (09:48)
[2023-02-09] MEDS: Folic Acid/Vit B Comp W-C PO SCH (09:48)
[2023-02-09] MEDS: Carvedilol 3.125 MG TAB PO SCH ×2 (09:48→21:48)
[2023-02-09] MEDS: Metoclopramide HCl 10 MG TAB PO SCH ×3 (09:49→20:27)
[2023-02-09] MEDS: Heparin 5,000 UNITS/ML VIAL SC SCH ×3 (09:50→20:29)
[2023-02-09] MEDS: Atorvastatin Calcium 40 MG TAB PO SCH (20:28)
[2023-02-10 04:59] LABS: #Basophils 0.1 thou/uL (0.0-0.2); #Eosinphils 0.3 thou/uL (0.0-0.7); #Neutrophils 6.3 thou/uL (1.40-6.50); %Basophils 0.9 % (0.0-1.0); %Eosinophils 3.6 % (0.0-10.0); %Lymphocytes 11.3 % (21.0-51.0); %Monocytes 11.4 % (0.0-10.0); %Neutrophils 72.5 % (42.0-75.0); Hemoglobin 13.5 g/dL (12.0-16.0); Mean Corpuscular Hemoglobin 32.7 pg (27.0-31.0); Mean Platelet Volume 9.4 fL (7.4-10.4); Platelet Count 200 10x3/uL (130-400); RBC Distribution Width 15.6 % (11.5-14.5); Red Blood Cell (RBC) Count 4.13 mill/uL (4.20-5.40); White Blood Cell (WBC) Count 8.6 10x3/uL (4.8-10.8)
[2023-02-10 05:21] LABS: Anion Gap 16 mmol/L (10-20); BUN (Urea Nitrogen) 33 mg/dL (9.8-20.1); Calc. Creatinine Clearance 11 mL/min (70-130); Calcium 8.5 mg/dL (7.8-10.44); Carbon Dioxide 28 mmol/L (23-31); Chloride 98 mmol/L (98-107); Estimated GFR 12; Glucose 82 mg/dL (80-115); Potassium 4.5 mmol/L (3.5-5.1); Sodium 137 mmol/L (136-145)
[2023-02-10] MEDS: Folic Acid/Vit B Comp W-C PO SCH (08:41)
[2023-02-10] MEDS: Carvedilol 3.125 MG TAB PO SCH ×2 (08:41→20:35)
[2023-02-10] MEDS: Metoclopramide HCl 10 MG TAB PO SCH ×3 (08:41→20:25)
[2023-02-10] MEDS: Aspirin Chewable 81 MG TAB PO SCH (08:41)
[2023-02-10] MEDS: Heparin 5,000 UNITS/ML VIAL SC SCH ×4 (08:43→21:36)
[2023-02-10] MEDS: HYDROcodone/Acetaminophen 5/325 mg Tablet PO PRN (17:54)
[2023-02-10] MEDS: Atorvastatin Calcium 40 MG TAB PO SCH (20:25)
[2023-02-11 05:13] LABS: #Basophils 0.1 thou/uL (0.0-0.2); #Eosinphils 0.2 thou/uL (0.0-0.7); #Monocytes 0.8 thou/uL (0.11-0.59); %Basophils 0.9 % (0.0-1.0); %Lymphocytes 14.1 % (21.0-51.0); %Monocytes 11.2 % (0.0-10.0); %Neutrophils 70.5 % (42.0-75.0); Hemoglobin 13.4 g/dL (12.0-16.0); Mean Corpuscular HGB CONC 32.8 g/dL (32.0-36.0); Mean Corpuscular Hemoglobin 32.2 pg (27.0-31.0); Mean Corpuscular Volume 98.3 fl (78.0-98.0); Mean Platelet Volume 9.8 fL (7.4-10.4); Platelet Count 226 10x3/uL (130-400); RBC Distribution Width 15.6 % (11.5-14.5); Red Blood Cell (RBC) Count 4.16 mill/uL (4.20-5.40)
[2023-02-11 05:41] LABS: Anion Gap 20 mmol/L (10-20); BUN (Urea Nitrogen) 51 mg/dL (9.8-20.1); Calc. Creatinine Clearance 9 mL/min (70-130); Calcium 8.8 mg/dL (7.8-10.44); Carbon Dioxide 23 mmol/L (23-31); Chloride 94 mmol/L (98-107); Estimated GFR 9; Glucose 73 mg/dL (80-115); Potassium 5.1 mmol/L (3.5-5.1); Sodium 132 mmol/L (136-145)
[2023-02-11] MEDS: Carvedilol 3.125 MG TAB PO SCH ×2 (08:18→21:51)
[2023-02-11] MEDS: Aspirin Chewable 81 MG TAB PO SCH (08:18)
[2023-02-11] MEDS: Folic Acid/Vit B Comp W-C PO SCH (08:18)
[2023-02-11] MEDS: Metoclopramide HCl 10 MG TAB PO SCH ×3 (08:18→21:51)
[2023-02-11] MEDS: Heparin 5,000 UNITS/ML VIAL SC SCH ×2 (17:39→22:19)
[2023-02-11] MEDS: Atorvastatin Calcium 40 MG TAB PO SCH (21:51)
[2023-02-12] MEDS: Folic Acid/Vit B Comp W-C PO SCH (09:50)
[2023-02-12] MEDS: Aspirin Chewable 81 MG TAB PO SCH (09:50)
[2023-02-12] MEDS: Carvedilol 3.125 MG TAB PO SCH (09:51)
[2023-02-12] MEDS: Metoclopramide HCl 10 MG TAB PO SCH ×3 (09:51→20:18)
[2023-02-12] MEDS: Heparin 5,000 UNITS/ML VIAL SC SCH (09:52)
[2023-02-12 12:39] VITALS: BMI 19.2
[2023-02-12] MEDS: Atorvastatin Calcium 40 MG TAB PO SCH (20:18)
[2023-02-12] MEDS: traMADol HCl 50 MG TAB PO PRN (20:19)
[2023-02-13 04:44] LABS: #Basophils 0.1 thou/uL (0.0-0.2); #Eosinphils 0.3 thou/uL (0.0-0.7); #Monocytes 0.9 thou/uL (0.11-0.59); #Neutrophils 5.7 thou/uL (1.40-6.50); %Basophils 0.6 % (0.0-1.0); %Eosinophils 3.8 % (0.0-10.0); %Lymphocytes 12.8 % (21.0-51.0); %Monocytes 11.5 % (0.0-10.0); %Neutrophils 71.1 % (42.0-75.0); Hemoglobin 13.4 g/dL (12.0-16.0); Mean Corpuscular HGB CONC 33.1 g/dL (32.0-36.0); Mean Corpuscular Hemoglobin 32.5 pg (27.0-31.0); Mean Corpuscular Volume 98.3 fl (78.0-98.0); Mean Platelet Volume 9.4 fL (7.4-10.4); Platelet Count 240 10x3/uL (130-400); RBC Distribution Width 15.3 % (11.5-14.5); Red Blood Cell (RBC) Count 4.12 mill/uL (4.20-5.40); White Blood Cell (WBC) Count 8.1 10x3/uL (4.8-10.8)
[2023-02-13 05:07] LABS: Anion Gap 18 mmol/L (10-20); BUN (Urea Nitrogen) 43 mg/dL (9.8-20.1); Calc. Creatinine Clearance 9 mL/min (70-130); Calcium 9.1 mg/dL (7.8-10.44); Carbon Dioxide 23 mmol/L (23-31); Chloride 94 mmol/L (98-107); Estimated GFR 10; Glucose 88 mg/dL (80-115); Potassium 4.9 mmol/L (3.5-5.1); Sodium 130 mmol/L (136-145)
[2023-02-13] MEDS: Folic Acid/Vit B Comp W-C PO SCH (09:42)
[2023-02-13] MEDS: Metoclopramide HCl 10 MG TAB PO SCH ×3 (09:42→21:04)
[2023-02-13] MEDS: Aspirin Chewable 81 MG TAB PO SCH (09:42)
[2023-02-13 14:41] LABS: Fungus Stain Final report (.)
[2023-02-13] MEDS: Atorvastatin Calcium 40 MG TAB PO SCH (21:04)
[2023-02-14 04:19] LABS: #Basophils 0.1 thou/uL (0.0-0.2); #Eosinphils 0.3 thou/uL (0.0-0.7); #Neutrophils 7.3 thou/uL (1.40-6.50); %Basophils 0.6 % (0.0-1.0); %Eosinophils 2.8 % (0.0-10.0); %Lymphocytes 7.9 % (21.0-51.0); %Monocytes 10.6 % (0.0-10.0); %Neutrophils 77.7 % (42.0-75.0); Hemoglobin 14.1 g/dL (12.0-16.0); Mean Corpuscular HGB CONC 33.3 g/dL (32.0-36.0); Mean Corpuscular Volume 96.1 fl (78.0-98.0); Mean Platelet Volume 9.5 fL (7.4-10.4); Platelet Count 249 10x3/uL (130-400); RBC Distribution Width 15.3 % (11.5-14.5); White Blood Cell (WBC) Count 9.4 10x3/uL (4.8-10.8)
[2023-02-14 04:43] LABS: Anion Gap 18 mmol/L (10-20); BUN (Urea Nitrogen) 21 mg/dL (9.8-20.1); Calc. Creatinine Clearance 12 mL/min (70-130); Calcium 9.4 mg/dL (7.8-10.44); Carbon Dioxide 25 mmol/L (23-31); Chloride 95 mmol/L (98-107); Estimated GFR 14; Glucose 89 mg/dL (80-115); Potassium 3.9 mmol/L (3.5-5.1); Sodium 134 mmol/L (136-145)
[2023-02-14] MEDS: traMADol HCl 50 MG TAB PO PRN (06:52)
[2023-02-14] MEDS: Bisacodyl 5 MG TAB PO PRN (06:53)
[2023-02-14] MEDS: Aspirin Chewable 81 MG TAB PO SCH (08:41)
[2023-02-14] MEDS: Metoclopramide HCl 10 MG TAB PO SCH ×3 (08:41→20:27)
[2023-02-14] MEDS: Folic Acid/Vit B Comp W-C PO SCH (08:42)
[2023-02-14] MEDS: Acetaminophen 325 MG TAB PO PRN (17:13)
[2023-02-14] MEDS: Atorvastatin Calcium 40 MG TAB PO SCH (20:27)
[2023-02-15] MEDS: Bisacodyl 5 MG TAB PO PRN (05:37)
[2023-02-15] MEDS: traMADol HCl 50 MG TAB PO PRN (05:37)
[2023-02-15] MEDS: Metoclopramide HCl 10 MG TAB PO SCH ×3 (10:17→20:05)
[2023-02-15] MEDS: Aspirin Chewable 81 MG TAB PO SCH (10:17)
[2023-02-15] MEDS: Folic Acid/Vit B Comp W-C PO SCH (10:18)
[2023-02-15] MEDS: Atorvastatin Calcium 40 MG TAB PO SCH (20:05)
[2023-02-16 05:31] LABS: Albumin 3.1 g/dL (3.4-4.8); Anion Gap 22 mmol/L (10-20); BUN (Urea Nitrogen) 64 mg/dL (9.8-20.1); Calc. Creatinine Clearance 7 mL/min (70-130); Calcium 9.3 mg/dL (7.8-10.44); Carbon Dioxide 23 mmol/L (23-31); Chloride 89 mmol/L (98-107); Estimated GFR 7; Glucose 85 mg/dL (80-115); Phosphorus 4.2 mg/dL (2.3-4.7); Potassium 5.6 mmol/L (3.5-5.1); Sodium 128 mmol/L (136-145)
[2023-02-16] MEDS: Aspirin Chewable 81 MG TAB PO SCH (12:00)
[2023-02-16] MEDS: Folic Acid/Vit B Comp W-C PO SCH (12:00)
[2023-02-16] MEDS: Metoclopramide HCl 10 MG TAB PO SCH (12:00)
[2023-02-16 13:38] VITALS: BP 98/51; TEMP 98.3
== END 2023-02-16 13:37 | disposition home or self-care (01) | DRG 186 ==
LOC: ERS 06:56 → ERHOLD 10:06 → 2NO 13:41
PROVIDERS: ADMIT Internal Medicine; ATTEND Internal Medicine
PROC: 0W9930Z Drainage of Right Pleural Cavity with Drainage Device, Percutaneous Approach (ICD-10-PCS; principal; 2023-02-07)
PROC: 5A1D70Z Performance of Urinary Filtration, Intermittent, Less than 6 Hours Per Day (ICD-10-PCS; 2023-02-16)
DX: J94.8 Other specified pleural conditions (principal); N18.6 End stage renal disease; E87.1 Hypo-osmolality and hyponatremia; I50.42 Chronic combined systolic (congestive) and diastolic (congestive) heart failure; I13.2 Hypertensive heart and chronic kidney disease with heart failure and with stage 5 chronic kidney disease, or end stage renal disease; I42.9 Cardiomyopathy, unspecified; Z68.1 Body mass index [BMI] 19.9 or less, adult; I25.10 Atherosclerotic heart disease of native coronary artery without angina pectoris; E78.5 Hyperlipidemia, unspecified; D63.1 Anemia in chronic kidney disease; E87.5 Hyperkalemia; I34.0 Nonrheumatic mitral (valve) insufficiency; E66.9 Obesity, unspecified; I95.9 Hypotension, unspecified; E78.00 Pure hypercholesterolemia, unspecified; Z90.49 Acquired absence of other specified parts of digestive tract; Z98.51 Tubal ligation status; Z79.51 Long term (current) use of inhaled steroids; Z79.899 Other long term (current) drug therapy; Z79.82 Long term (current) use of aspirin; Z95.810 Presence of automatic (implantable) cardiac defibrillator; Z91.199 Patient's noncompliance with other medical treatment and regimen due to unspecified reason
CPT/HCPCS: 36415; 71045; 71250; 80048; 80053; 80069; 82150; 82553; 82945; 83615; 83690; 83880; 83986; 84157; 84484; 85025; 85060; 87070; 87116; 87205; 87206; 88112; 88305; 89051; 90935; 93005; 93010; 93970; 94760; 96374; G0257; J1644; J2405; J3010

== ENCOUNTER 2023-03-28 08:57 | Inpatient (IN) | payer MEDICARE ==
[2023-03-28] MEDS ORDERED: Aspirin Chewable 81 MG TAB ONE (09:24)
[2023-03-28 09:39] LABS: #Basophils 0.1 thou/uL (0.0-0.2); #Eosinphils 0.1 thou/uL (0.0-0.7); #Monocytes 0.9 thou/uL (0.11-0.59); #Neutrophils 5.4 thou/uL (1.40-6.50); %Basophils 0.9 % (0.0-1.0); %Eosinophils 1.8 % (0.0-10.0); %Lymphocytes 18.3 % (21.0-51.0); %Monocytes 11.3 % (0.0-10.0); %Neutrophils 67.4 % (42.0-75.0); Hematocrit 39.4 % (36.0-47.0); Mean Corpuscular Hemoglobin 33.2 pg (27.0-31.0); Mean Corpuscular Volume 100.8 fl (78.0-98.0); Mean Platelet Volume 9.3 fL (7.4-10.4); Platelet Count 214 10x3/uL (130-400); RBC Distribution Width 18.3 % (11.5-14.5); Red Blood Cell (RBC) Count 3.91 mill/uL (4.20-5.40); White Blood Cell (WBC) Count 7.9 10x3/uL (4.8-10.8)
[2023-03-28 09:57] LABS: Troponin I 0.093 ng/mL (< 0.028)
[2023-03-28 09:59] LABS: ALT (SGPT) 14 U/L (8-55); AST (SGOT) 34 U/L (5-34); Albumin 3.6 g/dL (3.4-4.8); Alkaline Phosphatase 168 U/L (40-110); Anion Gap 17 mmol/L (10-20); BUN (Urea Nitrogen) 31 mg/dL (9.8-20.1); Bilirubin, Total 2.4 mg/dL (0.2-1.2); Calc. Creatinine Clearance 0 mL/min (70-130); Calcium 8.4 mg/dL (7.8-10.44); Carbon Dioxide 30 mmol/L (23-31); Chloride 97 mmol/L (98-107); Estimated GFR 13; Globulin 4.7 g/dL (2.4-3.5); Glucose 83 mg/dL (80-115); Potassium 3.7 mmol/L (3.5-5.1); Protein, Total 8.3 g/dL (5.8-8.1); Sodium 140 mmol/L (136-145)
[2023-03-28] MEDS ORDERED: Ondansetron ODT 4 MG TAB SL PRN (10:30)
[2023-03-28] MEDS ORDERED: Acetaminophen 325 MG TAB PO PRN (10:30)
[2023-03-28] MEDS ORDERED: Ondansetron PF 4 MG/2 ML Vial IVP PRN (10:30)
[2023-03-28 12:26] VITALS: BMI 22.2
[2023-03-28 13:47] LABS: Troponin I 0.079 ng/mL (< 0.028)
[2023-03-28] MEDS: hydrOXYzine 25 MG TAB PO PRN (14:26)
[2023-03-28] MEDS ORDERED: traZODone HCl 50 MG TAB PO PRN (16:39)
[2023-03-28 16:51] LABS: Troponin I 0.075 ng/mL (< 0.028)
[2023-03-28] MEDS: Carvedilol 3.125 MG TAB PO SCH (20:52)
[2023-03-28] MEDS: Atorvastatin Calcium 40 MG TAB PO SCH (20:52)
[2023-03-28] MEDS: Artificial Tear Sol 15 ML BOT EA EYE SCH (20:53)
[2023-03-28] MEDS: prednisoLONE 1% Ophth Susp 5 ml Bottle L EYE SCH (20:53)
[2023-03-29 04:53] LABS: #Basophils 0.1 thou/uL (0.0-0.2); #Eosinphils 0.1 thou/uL (0.0-0.7); #Monocytes 0.7 thou/uL (0.11-0.59); #Neutrophils 5.1 thou/uL (1.40-6.50); %Eosinophils 1.6 % (0.0-10.0); %Lymphocytes 15.2 % (21.0-51.0); %Monocytes 9.8 % (0.0-10.0); %Neutrophils 72.1 % (42.0-75.0); Hematocrit 38.5 % (36.0-47.0); Hemoglobin 12.2 g/dL (12.0-16.0); Mean Corpuscular HGB CONC 31.7 g/dL (32.0-36.0); Mean Corpuscular Hemoglobin 32.9 pg (27.0-31.0); Mean Corpuscular Volume 103.8 fl (78.0-98.0); Mean Platelet Volume 9.3 fL (7.4-10.4); Platelet Count 192 10x3/uL (130-400); RBC Distribution Width 18.1 % (11.5-14.5); Red Blood Cell (RBC) Count 3.71 mill/uL (4.20-5.40); White Blood Cell (WBC) Count 7.1 10x3/uL (4.8-10.8)
[2023-03-29 05:24] LABS: Anion Gap 20 mmol/L (10-20); BUN (Urea Nitrogen) 43 mg/dL (9.8-20.1); Calc. Creatinine Clearance 10 mL/min (70-130); Calcium 8.3 mg/dL (7.8-10.44); Carbon Dioxide 23 mmol/L (23-31); Cardiac Risk 3.2 (Less than 4.5); Chloride 97 mmol/L (98-107); Cholesterol 107 mg/dl (< 200 Desired); Estimated GFR 10; Glucose 72 mg/dL (80-115); HDL Cholesterol 33 mg/dL (>60 Neg Risk); LDL Cholesterol, Calculated 55 mg/dL; Potassium 4.4 mmol/L (3.5-5.1); Sodium 136 mmol/L (136-145); Triglycerides 95 mg/dL (Less than 150)
[2023-03-29] MEDS ORDERED: valACYclovir 500 MG TAB PO SCH ×2 (09:00)
[2023-03-29] MEDS: prednisoLONE 1% Ophth Susp 5 ml Bottle L EYE SCH ×4 (10:17→20:52)
[2023-03-29] MEDS: Artificial Tear Sol 15 ML BOT EA EYE SCH ×2 (10:18→20:52)
[2023-03-29] MEDS: Aspirin 325 mg Enteric Coated Tablet PO SCH (10:18)
[2023-03-29] MEDS: hydrOXYzine 25 MG TAB PO PRN ×2 (10:19→20:52)
[2023-03-29] MEDS: Carvedilol 3.125 MG TAB PO SCH ×2 (10:19→20:53)
[2023-03-29] MEDS: Folic Acid/Vit B Comp W-C PO SCH (10:19)
[2023-03-29] MEDS: Heparin 5,000 UNITS/ML VIAL SC SCH ×2 (15:18→20:51)
[2023-03-29] MEDS: Atorvastatin Calcium 40 MG TAB PO SCH (20:53)
[2023-03-29] MEDS ORDERED: Dextrose 50% Abboject 50 ML SYRINGE SLOW IVP PRN (22:26)
[2023-03-29] MEDS ORDERED: Glucagon 1 MG/ML KIT IM PRN (22:26)
[2023-03-29] MEDS ORDERED: Dextrose 5% in Water 1,000 ML IV PRN (22:26)
[2023-03-29 23:12] LABS: Anion Gap 28 mmol/L (10-20); BUN (Urea Nitrogen) 56 mg/dL (9.8-20.1); Calc. Creatinine Clearance 8 mL/min (70-130); Calcium 8.2 mg/dL (7.8-10.44); Carbon Dioxide 19 mmol/L (23-31); Chloride 94 mmol/L (98-107); Estimated GFR 8; Glucose 57 mg/dL (80-115); Glucose POC Confirmation 57 mg/dL (80-115); Potassium 5.8 mmol/L (3.5-5.1); Sodium 135 mmol/L (136-145)
[2023-03-30 02:20] LABS: #Monocytes 0.9 thou/uL (0.11-0.59); %Basophils 0.4 % (0.0-1.0); %Eosinophils 0.3 % (0.0-10.0); %Lymphocytes 9.8 % (21.0-51.0); %Monocytes 11.4 % (0.0-10.0); %Neutrophils 77.7 % (42.0-75.0); Hematocrit 37.9 % (36.0-47.0); Hemoglobin 12.6 g/dL (12.0-16.0); Mean Corpuscular HGB CONC 33.2 g/dL (32.0-36.0); Mean Corpuscular Hemoglobin 32.5 pg (27.0-31.0); Mean Platelet Volume 9.5 fL (7.4-10.4); Platelet Count 204 10x3/uL (130-400); RBC Distribution Width 17.4 % (11.5-14.5); Red Blood Cell (RBC) Count 3.88 mill/uL (4.20-5.40); White Blood Cell (WBC) Count 7.7 10x3/uL (4.8-10.8)
[2023-03-30 02:32] LABS: Mean Corpuscular Volume 97.7 fl (78.0-98.0)
[2023-03-30 02:35] LABS: INR-International Normal Ratio 1.6; Prothrombin Time 19.3 sec (12.0-14.7)
[2023-03-30 02:36] LABS: PTT 35.1 sec (22.9-36.1)
[2023-03-30 02:44] LABS: ALT (SGPT) 19 U/L (8-55); AST (SGOT) 56 U/L (5-34); Albumin 3.1 g/dL (3.4-4.8); Alkaline Phosphatase 131 U/L (40-110); Anion Gap 26 mmol/L (10-20); BUN (Urea Nitrogen) 57 mg/dL (9.8-20.1); CK (CPK) 48 U/L (29-168); Calc. Creatinine Clearance 8 mL/min (70-130); Calcium 7.8 mg/dL (7.8-10.44); Carbon Dioxide 18 mmol/L (23-31); Chloride 90 mmol/L (98-107); Estimated GFR 8; Glucose 91 mg/dL (80-115); Potassium 5.7 mmol/L (3.5-5.1); Protein, Total 7.1 g/dL (5.8-8.1); Sodium 128 mmol/L (136-145)
[2023-03-30] MEDS: Heparin 5,000 UNITS/ML VIAL SC SCH ×3 (08:12→21:36)
[2023-03-30] MEDS: prednisoLONE 1% Ophth Susp 5 ml Bottle L EYE SCH ×4 (08:13→21:34)
[2023-03-30] MEDS: Artificial Tear Sol 15 ML BOT EA EYE SCH ×2 (08:15→21:34)
[2023-03-30] MEDS ORDERED: Heparin 10,000 UNITS/ 10 ML VIAL ONE ×2 (08:34→09:13)
[2023-03-30 09:02] LABS: HBSAg Index 0.62 S/CO (0-0.99); Hep B Core Total Ab Non-Reactive (NonReactive); Hep B Core Total Index 0.45 S/CO (0-0.79); Hep B Surf Ag Non-Reactive S/CO (NonReactive); Hep C IgG Ab Non-Reactive S/CO (NonReactive); Hep C Index 0.11 S/CO (0-0.79)
[2023-03-30 09:23] LABS: HBSAB Concentration 16.24 mIU/mL; Hep B Surf AB Reactive (NonReactive)
[2023-03-30] MEDS: Folic Acid/Vit B Comp W-C PO SCH (12:37)
[2023-03-30] MEDS: Carvedilol 3.125 MG TAB PO SCH ×2 (12:37→21:35)
[2023-03-30] MEDS: Aspirin 325 mg Enteric Coated Tablet PO SCH (12:37)
[2023-03-30] MEDS: Dextrose 5%-Lactated Ringers 1,000 ML IV SCH (18:31)
[2023-03-30] MEDS: Atorvastatin Calcium 40 MG TAB PO SCH (21:35)
[2023-03-31 08:30] LABS: ALT (SGPT) 19 U/L (8-55); AST (SGOT) 44 U/L (5-34); Albumin 3.4 g/dL (3.4-4.8); Alkaline Phosphatase 130 U/L (40-110); Anion Gap 22 mmol/L (10-20); BUN (Urea Nitrogen) 27 mg/dL (9.8-20.1); Bilirubin, Total 3.1 mg/dL (0.2-1.2); Calc. Creatinine Clearance 11 mL/min (70-130); Calcium 8.5 mg/dL (7.8-10.44); Carbon Dioxide 21 mmol/L (23-31); Chloride 94 mmol/L (98-107); Estimated GFR 11; Glucose 81 mg/dL (80-115); Protein, Total 7.4 g/dL (5.8-8.1); Sodium 133 mmol/L (136-145)
[2023-03-31] MEDS: Folic Acid/Vit B Comp W-C PO SCH (14:51)
[2023-03-31] MEDS: Heparin 5,000 UNITS/ML VIAL SC SCH ×3 (14:51→21:37)
[2023-03-31] MEDS: Aspirin 325 mg Enteric Coated Tablet PO SCH (14:51)
[2023-03-31] MEDS: Carvedilol 3.125 MG TAB PO SCH ×2 (14:51→21:35)
[2023-03-31] MEDS ORDERED: diphenhydrAMINE 25 MG CAP PO SCH (17:15)
[2023-03-31] MEDS: prednisoLONE 1% Ophth Susp 5 ml Bottle L EYE SCH ×2 (18:29→21:33)
[2023-03-31] MEDS: Artificial Tear Sol 15 ML BOT EA EYE SCH ×2 (18:29→21:33)
[2023-03-31] MEDS: Dextrose 5%-Lactated Ringers 1,000 ML IV SCH (20:45)
[2023-03-31] MEDS: Atorvastatin Calcium 40 MG TAB PO SCH (21:35)
[2023-04-01 07:04] LABS: ALT (SGPT) 16 U/L (8-55); AST (SGOT) 38 U/L (5-34); Albumin 3.2 g/dL (3.4-4.8); Alkaline Phosphatase 139 U/L (40-110); Anion Gap 19 mmol/L (10-20); BUN (Urea Nitrogen) 21 mg/dL (9.8-20.1); Bilirubin, Total 2.6 mg/dL (0.2-1.2); Calc. Creatinine Clearance 12 mL/min (70-130); Calcium 8.7 mg/dL (7.8-10.44); Carbon Dioxide 22 mmol/L (23-31); Chloride 96 mmol/L (98-107); Estimated GFR 12; Globulin 4.2 g/dL (2.4-3.5); Glucose 127 mg/dL (80-115); Potassium 3.6 mmol/L (3.5-5.1); Protein, Total 7.4 g/dL (5.8-8.1); Sodium 133 mmol/L (136-145)
[2023-04-01] MEDS ORDERED: Heparin 10,000 UNITS/ 10 ML VIAL ONE (08:59)
[2023-04-01] MEDS: Carvedilol 3.125 MG TAB PO SCH ×2 (13:18→20:49)
[2023-04-01] MEDS: Folic Acid/Vit B Comp W-C PO SCH (13:18)
[2023-04-01] MEDS: Heparin 5,000 UNITS/ML VIAL SC SCH ×3 (15:12→20:51)
[2023-04-01] MEDS: prednisoLONE 1% Ophth Susp 5 ml Bottle L EYE SCH ×4 (15:13→20:56)
[2023-04-01] MEDS: Artificial Tear Sol 15 ML BOT EA EYE SCH ×2 (17:47→20:56)
[2023-04-01] MEDS: Aspirin 325 mg Enteric Coated Tablet PO SCH (17:48)
[2023-04-01] MEDS: Atorvastatin Calcium 40 MG TAB PO SCH (20:55)
[2023-04-02 08:08] VITALS: TEMP 98.1
[2023-04-02] MEDS: Heparin 5,000 UNITS/ML VIAL SC SCH (09:24)
[2023-04-02] MEDS: prednisoLONE 1% Ophth Susp 5 ml Bottle L EYE SCH ×2 (09:25→12:45)
[2023-04-02] MEDS: Artificial Tear Sol 15 ML BOT EA EYE SCH (09:26)
[2023-04-02] MEDS ORDERED: Ondansetron PF 4 MG/2 ML Vial IVP PRN (09:32)
[2023-04-02] MEDS: Carvedilol 3.125 MG TAB PO SCH (10:06)
[2023-04-02 11:57] VITALS: BP 91/52
[2023-04-02] MEDS: Folic Acid/Vit B Comp W-C PO SCH (12:18)
== END 2023-04-02 13:20 | DRG 917 ==
LOC: ERS 08:57 → 2SW 10:24 → 2SE 21:09 → OBSVTOIN 03-29 14:18
PROVIDERS: ADMIT Student in an Organized Health Care Education/Training Program; ATTEND Student in an Organized Health Care Education/Training Program
DX: T37.5X1A Poisoning by antiviral drugs, accidental (unintentional), initial encounter (principal); G93.41 Metabolic encephalopathy; N18.6 End stage renal disease; I13.2 Hypertensive heart and chronic kidney disease with heart failure and with stage 5 chronic kidney disease, or end stage renal disease; B02.30 Zoster ocular disease, unspecified; I50.22 Chronic systolic (congestive) heart failure; E78.5 Hyperlipidemia, unspecified; R47.1 Dysarthria and anarthria; R29.810 Facial weakness; I95.9 Hypotension, unspecified; E87.5 Hyperkalemia; R53.81 Other malaise; Z88.8 Allergy status to other drugs, medicaments and biological substances; Z79.899 Other long term (current) drug therapy; Z95.810 Presence of automatic (implantable) cardiac defibrillator; Z98.51 Tubal ligation status; Z90.49 Acquired absence of other specified parts of digestive tract; Z83.3 Family history of diabetes mellitus; Z82.49 Family history of ischemic heart disease and other diseases of the circulatory system; E16.2 Hypoglycemia, unspecified
CPT/HCPCS: 0042T; 36415; 36416; 70450; 70496; 70498; 70551; 71045; 74230; 80048; 80053; 80061; 82550; 83880; 84443; 84484; 85025; 85610; 85730; 86704; 90935; 93005; 93010; G0257; J1644; J2405; J7070; J7999